=== PATIENT | female | born 1955 | race Caucasian/White ===

== ENCOUNTER → 2018-04-29 10:51 | Outpatient (CLI) | payer OTHER, SELFPAY ==
[2018-04-29 12:43] LABS: BUN 21 mg/dL (7-18); Creatinine, Serum 0.58 mg/dL (0.55-1.02); EST Glomerular Filtration Rate 113 mL/min (>60); Glucose 94 mg/dL (74-106)
[2018-04-29 12:44] LABS: Anion Gap 11 (5-15); BUN/Creat Ratio 36.4 RATIO (10-20); Calcium,Total 9.1 mg/dL (8.5-10.1); Chloride 101 mmol/L (98-107); Est Glom Filt Rate - Afr Amer 137 mL/min (>60); Potassium 3.8 mmol/L (3.5-5.1); Sodium Level 140 mmol/L (136-145)
== END ==
PROVIDERS: Family Provider Family Medicine; PCP Family Medicine; Visit Provider Family Medicine
DX: Z00.00 Encounter for general adult medical examination without abnormal findings (principal)
CPT/HCPCS: 36415; 80048

== ENCOUNTER → 2019-05-19 09:51 | Outpatient (CLI) | payer OTHER, SELFPAY ==
[2019-05-19 12:56] LABS: Anion Gap 5 (5-15); BUN 20 mg/dL (7-18); BUN/Creat Ratio 33.8 RATIO (10-20); Calcium,Total 8.7 mg/dL (8.5-10.1); Chloride 104 mmol/L (98-107); Creatinine, Serum 0.59 mg/dL (0.55-1.02); EST Glomerular Filtration Rate 110 mL/min (>60); Est Glom Filt Rate - Afr Amer 133 mL/min (>60); Glucose 89 mg/dL (74-106); Potassium 3.9 mmol/L (3.5-5.1); Sodium Level 140 mmol/L (136-145)
== END ==
PROVIDERS: Family Provider Family Medicine; PCP Family Medicine; Referring Provider Family Medicine; Visit Provider Family Medicine
DX: I10 Essential (primary) hypertension (principal)
CPT/HCPCS: 36415; 80048

== ENCOUNTER → 2020-02-02 11:59 | Outpatient (CLI) | payer BC, SELFPAY ==
[2020-02-02 16:00] LABS: Anion Gap 6 (5-15); BUN 24 mg/dL (7-18); BUN/Creat Ratio 41.7 RATIO (10-20); Calcium,Total 8.9 mg/dL (8.5-10.1); Chloride 100 mmol/L (98-107); Cholesterol 168 mg/dL (200); Creatinine, Serum 0.58 mg/dL (0.55-1.02); EST Glomerular Filtration Rate 113 mL/min (>60); Est Glom Filt Rate - Afr Amer 137 mL/min (>60); Glucose 89 mg/dL (74-106); High Density Lipoprotein 34 mg/dL; Potassium 3.6 mmol/L (3.5-5.1); Sodium Level 137 mmol/L (136-145); Triglycerides 180 mg/dL; Very Low Density Lipoprotein 36 mg/dL (5-40)
== END ==
PROVIDERS: PCP Family Medicine; Visit Provider Family Medicine
DX: I10 Essential (primary) hypertension (principal)
CPT/HCPCS: 36415; 80048; 80061

== ENCOUNTER 2021-11-07 10:38 | Outpatient (CLI) | payer OTHER, SELFPAY ==
[2021-11-07 12:42] LABS: Anion Gap 5 (5-15); BUN 21 mg/dL (7-18); BUN/Creat Ratio 36.9 RATIO (10-20); Calcium,Total 9.1 mg/dL (8.5-10.1); Chloride 99 mmol/L (98-107); Cholesterol 171 mg/dL (200); Creatinine, Serum 0.57 mg/dL (0.55-1.02); EST Glomerular Filtration Rate 114 mL/min (>60); Est Glom Filt Rate - Afr Amer 138 mL/min (>60); Glucose 91 mg/dL (74-106); High Density Lipoprotein 34 mg/dL; Potassium 3.8 mmol/L (3.5-5.1); Sodium Level 135 mmol/L (136-145); Triglycerides 252 mg/dL; Very Low Density Lipoprotein 50 mg/dL (5-40)
== END 2021-11-07 23:59 | disposition home or self-care (01) ==
LOC: MFPLAB 10:40
PROVIDERS: PCP Family Medicine; Referring Provider Family Medicine; Visit Provider Family Medicine
DX: I10 Essential (primary) hypertension (principal)
CPT/HCPCS: 36415; 80048; 80061

== ENCOUNTER → 2022-01-07 | Outpatient (CLI) | payer BC, SELFPAY | END | disposition home or self-care (01) | LOC: MFPLAB 09:24 | PROVIDERS: PCP Family Medicine; Visit Provider Family Medicine | DX: R19.7 Diarrhea, unspecified (principal) | CPT/HCPCS: 87177; 87209; 87493; 87506 ==

== ENCOUNTER → 2023-05-19 | Outpatient (CLI) | payer MEDICARE, SELFPAY ==
[2023-05-19 12:43] LABS: AST(SGOT) 17 U/L (15-37); Alanine Aminotransfer ALT/SGPT 25 U/L (13-56); Anion Gap 3 (5-15); BUN 22 mg/dL (7-18); BUN/Creat Ratio 43.9 RATIO (10-20); Chloride 104 mmol/L (98-107); Cholesterol 150 mg/dL (200); EST Glomerular Filtration Rate 131 mL/min (>60); Est Glom Filt Rate - Afr Amer 159 mL/min (>60); Glucose 94 mg/dL (74-106); High Density Lipoprotein 28 mg/dL; Potassium 3.9 mmol/L (3.5-5.1); Sodium Level 138 mmol/L (136-145); Triglycerides 318 mg/dL; Very Low Density Lipoprotein 64 mg/dL (5-40)
== END | disposition home or self-care (01) ==
PROVIDERS: PCP Family Medicine; Referring Provider Family Medicine; Visit Provider Family Medicine
DX: E78.2 Mixed hyperlipidemia (principal); I10 Essential (primary) hypertension
CPT/HCPCS: 36415; 80048; 80061; 84450; 84460

== ENCOUNTER → 2024-06-21 | Outpatient (CLI) | payer MEDICARE, SELFPAY ==
--- OUTSIDE RECORDS SUMMARY | 2024-06-21 13:26 | XMS RPT_ITS | CCD ---
Author Organization [facility] Care Team Providers Care Manager Work Name Role Phone Leanna Fisher Primary Care Provider [phone] NEJAZMÍN JOHNSTONNTCRYSTAL ELVIN Attending Unavail able JOLLZAIRA, LEANNA PHILIP Primary Care Unavailable NEYHART MEJIA, ELVIN Referring Unavail able JOLLIFF, LEANNA PHILIP Primary Care Unavailable JOLLIFF, LEANNA PHILIP Primary Care Unavailable NEYHART MEJIA, ELVIN Referring Unavail able NEYHART MEJIA ELVIN Attending Unavail able NEYHART MEJIA, ELVIN Attending Unavail able JOLLIFF, LEANNA PHILIP Primary Care Unavailable NEYHART MEJIA, ELVIN Attending Unavail able JOLLIFF, LEANNA PHILIP Primary Care Unavailable NEYHART MEJIA, ELVIN Attending Unavail able JOLLIFF, LEANNA PHILIP Primary Care Unavailable Allergies Allergy Classification Reported Allergen(s) Allergy Type Date of Onset Reaction(s) Facility (3 sources) Penicillins; Translations: [PENICILLINS] Propensity to adverse reactions 06-04-2006 [facility] Work Phone: (13 sources) Penicillins Propensity to adverse reactions 06-04-2006 [facility] Work Phone: Medications Current Medications Medication Drug Class(es) Dates Sig (Normalized) Sig (Original) aspirin 81 mg chewable tablet (15 sources) Platelet Aggregation Inhibitor, Nonsteroidal Anti-inflammatory Drug Start: 08-23-2008 ASPIRIN 81 MG CHEWABLE TAB one tab daily 0 08/23/2008 Active Comment on above: one tab daily estradiol 0.1 mg/ml vaginal cream (17 sources) Estrogen Start: 10-24-2021 End: 02-09-2024 estradiol (ESTRACE) 0.01 % (0.1 mg/gram) vaginal cream 1/2 gram in vagina 2 nights per wk 42.5 g 1 02/09/2024 Active Comment on above: 1/2 gram in vagina 2 nights per wk fluticasone propionate 0.05 mg/actuat metered dose nasal spray (15 sources) Corticosteroid Start: 03-23-2007 take 1 puff(s) nasal route once in the morning fluticasone (FLONASE) 50 mcg/Actuation NASAL SprA One puff per nostril in a.m. 0 03/23/2007 Active Comment on above: One puff per nostril in a.m. hydroCHLOROthiazide 12.5 mg / lisinopril 20 mg oral tablet (15 sources) Thiazide Diuretic, Angiotensin Converting Enzyme Inhibitor Start: 08-23-2008 LISINOPRIL-HYDR OCHLOROTHIAZIDE 20 MG-12.5 MG TAB one tab daily 0 08/23/2008 Active Comment on above: one tab daily meclizine hydrochloride 25 mg oral tablet (15 sources) Antiemetic Start: 02-15-2021 take 1 tablet by mouth every six hours as needed meclizine (ANTIVERT) 25 mg tab Take 1 tablet by mouth every 6 hours as needed (dizziness). 25 tablet 02/15/2021 Active Comment on above: Take 1 tablet by brien th every 6 hours as needed (dizziness). Problems Problem Classification Problem Date Documented Da te Episodic/Chronic Complication of device; implant or graft (6 sources) Vaginitis; Translations: [Infection and inflammatory reaction due to other prosthetic device, implant and graft in genital tract, initial encounter] Episodic Essential hypertension (15 sources) Essential hypertension; Translations: [Essential (primary) hypertension] Onset: 08-23-2008 08-23-2008 Chronic Genitourinary symptoms and ill-defined conditions (15 sources) Vaginal pessary in situ; Translations: [Presence of urogenital implants] Onset: 03-11-2012 03-11-2012 Chronic Other female genital disorders (1 source) Vaginal bleeding; Translations: [Abnormal uterine and vaginal bleeding, unspecified] Chronic Other female genital disorders (1 source) Lesion of cervix; Translations: [Noninflammatory disorder of cervix uteri, unspecified] Episodic Other screening for suspected conditions (not mental disorders or infectious disease) (20 sources) Patient encounter status; Translations: [Encounter for screening mammogram for malignant neoplasm of breast] Onset: 01-09-2010 Episodic Prolapse of female genital organs (20 sources) Vaginal wall prolapse; Translations: [Cystocele, unspecified] Onset: 12-19-2009 12-19-2009 Chronic Rehabilitation care; fitting of prostheses; and adjustment of devices (8 sources) Patient encounter status; Translations: [Encounter for fitting and adjustment of other specified devices] Chronic Unclassified (15 sources) PMH - PAST MEDICAL HISTORY OF 08-23-2008 Results Test Name Value Interpretation Reference Range Facility DBT Breast - bilateral scree elie 05-11-2024 IMPRESSION: NEGATIVE There is no mammographic evidence of malignancy. A 1 year screening mammogram is recommended. The exam was reviewed by a staff physician. ishan Sol M.D., D.O./cedrick:05/10/20 24 10:02:46 Arboreal Scientist(s): RT Jesus Alberto(R)(M), [facility] letter sent: Normal over 40 Mammogram BI-RADS: Category 1: Negative Multiple national specialty organizations have released breast cancer screening guidelines for women at average risk for developing breast cancer - guidelines that are based on both evidence and opinion, yet differ on when to start and how often to screen for breast cancer. With representation from Breast Imaging, Internal Medicine, Women's Health, Family Medicine, and Medical/Surgical Oncology, the [facility] has carefully reviewed the data and reached the following consensus: 1) All women should engage in shared decision-making with their providers to decide when to start and how often to screen; 2) All women should have the opportunity to start screening mammography at age 40; 3) For women ages 45-55, we recommend annual screening mammograms; 4) For women ages 55 and over, we support both the transition from an annual to a biennial interval if this aligns more with patient's values and preferences, or continuation with annual screening; 5) All women should discuss with their providers when to stop screening mammograms. Industrial Gas Fitter Helper: Cedrick Transcribe Date/Time: May 10 2024 8:01A Dictated by: JENNY WU DO This examination was interpreted and the report reviewed and electronically signed by: SEBASTIAN RIOS MD on May 10 2024 10:02AM [facility] DIVISION OF RADIOLOGY * * *Final Report* * * DATE OF EXAM: May 10 2024 8:50AM [facility] [id number] - [facility] SCREENING W MECCA / PROCEDURE REASON: Encounter for screening mammogram for malignant neoplasm of breast * * * * Physician Interpretation * * * * RESULT: #[id number] - [facility] SCREENING W MECCA BILATERAL DIGITAL SCREENING MAMMOGRAM TOMOSYNTHESIS WITH CAD: 05/10/2024 HISTORY: /Screening Mammogram with MECCA - patient reports NO breast symptoms /priors available for comparison Encounter For Screening Mammogram For Malignant Neoplasm Of Breast. RESULT: TECHNIQUE: The study was acquired using full field digital technology and interpreted from soft copy. Digital Breast Tomosynthesis (DBT) images were obtained and used to assist in the interpretation of this examination. Current study was also evaluated with a Computer Aided Detection (CAD). Comparison is made to exams dated: 05/02/2023 mammogram, 02/04/2022 mammogram - [facility], and 05/17/2019 mammogram - [facility]. There are scattered areas of fibroglandular density. No significant masses, calcifications, or other findings are seen in either breast. There has been no significant interval change. DIVISION OF RADIOLOGY Provider, [facility] - 05/11/2024 * * *Final Report* * * DATE OF EXAM: May 10 2024 8:50AM [facility] 0582 - [facility] SCREENING W MECCA / PROCEDURE REASON: Encounter for screening mammogram for malignant neoplasm of breast * * * * Physician Interpretation * * * * RESULT: #[id number] - [facility] SCREENING W MECCA BILATERAL DIGITAL SCREENING MAMMOGRAM TOMOSYNTHESIS WITH CAD: 05/10/2024 HISTORY: /Screening Mammogram with [facility] - patient reports NO breast symptoms /priors available for comparison Encounter For Screening Mammogram For Malignant Neoplasm Of Breast. RESULT: TECHNIQUE: The study was acquired using full field digital technology and interpreted from soft copy. Digital Breast Tomosynthesis (DBT) images were obtained and used to assist in the interpretation of this examination. Current study was also evaluated with a Computer Aided Detection (CAD). Comparison is made to exams dated: 05/02/2023 mammogram, 02/04/2022 mammogram - [facility], and 05/17/2019 mammogram - [facility]. There are scattered areas of fibroglandular density. No significant masses, calcifications, or other findings are seen in either breast. There has been no significant interval change. IMPRESSION IMPRESSION: NEGATIVE There is no mammographic evidence of malignancy. A 1 year screening mammogram is recommended. The exam was reviewed by a staff physician. ishan Sol M.D., D.O./cedrick:05/10/20 24 10:02:46 Arboreal Scientist(s): RT Jesus Alberto(R)(M), [facility] letter sent: Normal over 40 Mammogram BI-RADS: Category 1: Negative Multiple national specialty organizations have released breast cancer screening guidelines for women at average risk for developing breast cancer - guidelines that are based on both evidence and opinion, yet differ on when to start and how often to screen for breast cancer. With representation from Breast Imaging, Internal Medicine, Women's Health, Family Medicine, and Medical/Surgical Oncology, the [facility] has carefully reviewed the data and reached the following consensus: 1) All women should engage in shared decision-making with their providers to decide when to start and how often to screen; 2) All women should have the opportunity to start screening mammography at age 40; 3) For women ages 45-55, we recommend annual screening mammograms; 4) For women ages 55 and over, we support both the transition from an annual to a biennial interval if this aligns more with patient's values and preferences, or continuation with annual screening; 5) All women should discuss with their providers when to stop screening mammograms. Industrial Gas Fitter Helper: Cedrick Transcribe Date/Time: May 10 2024 8:01A Dictated by: JENNY WU, DO This examination was interpreted and the report reviewed and electronically signed by: SEBASTIAN RIOS MD on May 10 2024 10:02AM EST [facility] DBT Breast - bilateral scree ningOrdered By: Cchenok Provider on 05-11-2024 [facility] MAUREENOon 05-10-2024 [facility] HNO ID: [id number] Author: COORDINATOR, MAMMOGRAPHY, ? Service: ? Author Type: Physician Type: Letter Filed: 05/10/2024 10:02 Note Text: May 11, 2024 PID: [id number] Brenda Enrique [address] [place] [address] Dear Ms. Enrique, We are pleased to inform you that the results of your recent breast imaging exam on 05/10/2024 are normal. Breast tissue can be either dense or not dense. Dense tissue makes it harder to find breast cancer on a mammogram and also raises the risk of developing breast cancer. Your breast tissue is not dense. Talk to your healthcare provider about breast density, risks for breast cancer, and your individual situation. Early detection of cancer is very important. We also understand recommendations regarding breast cancer screening are controversial. Please discuss with your primary care provider which strategy is best for you and whether a mammogram is right for you. Your imaging studies and report will be kept on file at [facility] as part of your permanent medical record and are available for your continuing care. Thank you for allowing us to help in meeting your health care needs. Sincerely, Dr. Rios Interpreting Radiologist [facility] (Normal over 40) Normal [facility] CNOVon 05-10-2024 CNOV Office Visit (OBGYWM) BRENDA ENRIQUE ([id number]) 1955 F Date Time Provider Department 05/10/24 9:00 AM ELVIN RUIZ OBGYWM During your visit today, we recorded the following information about you: Blood pressure Weight Height 122/60 69.9 kg 1.651 m Elvin Ruiz MD 05/10/2024 9:20 AM Signed Studio Technician Video Operator offered: Patient declines. The sensitive examination was discussed with the Patient or Patient's Authorized Certified Medical Records Coder. As applicable, any other physician, advance practice provider, medical student, or other health professional student that will be observing or involved in the sensitive examination for educational or training purposes was discussed with the Patient or Authorized Certified Medical Records Coder. The Patient or Authorized Certified Medical Records Coder has agreed to proceed with the sensitive examination. (Sensitive examination includes inspection and/or palpation of the breasts, pelvis, prostate and anorectal regions) Brenda is a 68 year old who presents for an annual gynecologic exam without complaints. No issues with Pessary. Here for pessary maintenance as well. Pt denies vaginal bleeding, discharge and odors. Postmenopausal: Yes HRT use: No. Last Pap: 10/31/2021 normal HPV: 10/30/2021 negative History of abnormal pap: No Last mammogram: 2023 pending History of abnormal mammogram: No Sexually active: No History of STDS: None Patient concerns for STD exposure: No. Hot flashes: No Night sweats: No Vaginal dryness: No Exercise: active Diet: balanced OB History T2 L2 SAB0 IAB0 Ectopic0 Multiple0 Live Births0 Tank Pumper History LMP: 07/20/2013, Postmenopausal Age at Menarche: Age at First : Age at Menopause: Tank Pumper History Comments: Sexual Activity: Yes; Male Contraception: Surgical, Tubal Ligation PAST MEDICAL HISTORY Diagnosis Date Essential hypertension, benign PMH - PAST MEDICAL HISTORY OF bladder prolapse/ currently wears a pessary PAST SURGICAL HISTORY Procedure Laterality Date APPENDECTOMY COLONOSCOPY FLX DX W/COLLJ SPEC WHEN PFRMD 01/18/10 Normal Colonoscopy LIG/TRNSXJ FLP TUBE ABDL/VAG APPR UNI/BI 1994 FAMILY HISTORY Problem Relation Age of Onset Hypertension Mother Heart Father quafruple bipass Diabetes Father adult onset Hypertension Brother borderline SOCIAL HISTORY Social History Tobacco Use Smoking status: Never Smokeless tobacco: Never Vaping Use Vaping status: Never Used Substance Use Topics Alcohol use: No Drug use: No REVIEW OF SYSTEMS Abdomen: No abdominal pain, nausea, vomiting, diarrhea, or constipation. No bloating, early satiety, indigestion, or increased flatulence. Bladder: No dysuria, gross hematuria, urinary frequency, urinary urgency, or incontinence Breast: No breast lumps, nipple d/c, overlying skin changes, redness or skin retraction Allergies and current medication updated:Yes SENSITIVE EXAM: The sensitive examination was discussed with the Patient or Patient's Authorized Certified Medical Records Coder. As applicable, any other physician, advance practice provider, medical student, or other health professional student that will be observing or involved in the sensitive examination for educational or training purposes was discussed with the Patient or Authorized Certified Medical Records Coder. The Patient or Authorized Certified Medical Records Coder has agreed to proceed with the sensitive examination. (Sensitive examination includes inspection and/or palpation of the breasts, pelvis, prostate and anorectal regions). EXAM: BP 122/60 Ht 5' 5 (1.65m) Wt 154 lb (69.9kg) LMP 07/20/2013 BMI 25.63 kg/(m2). GENERAL: pleasant, female in no apparent distress HEENT: Normocephalic, atraumatic, mucus membranes moist, and no lesions NECK: Supple, full range of motion, no adenopathy, and thyroid normal DERMATOLOGY: Normal, without lesions, non-icteric, and non-hirsute BREAST: soft, non-tender, symmetric, no dominant mass, normal nipple-areolar complex, no lymphadenopathy, and no nipple discharge ABDOMEN: soft, non-tender, and no masses PELVIC: Gelhorn pessary removed wtihout difficulty. Cleaned and coated with trimosan. external genitalia normal, normal Bartholin's glands, urethra, Ravenel's glands, no vulvar lesions, no cervical lesions, good vaginal support, physiologic discharge present, normal appearing perineal body and perianal region. Pessary replaced without difficulty. Pt tolerated well. BIMANUAL: uterus normal size, shape and consistency, no adnexal masses, and non-tender RECTOVAGINAL: deferred. NEURO: alert and oriented x3,exam grossly non-focal EXTREMITIES: normal (Z01.419) Encounter for gynecological examination (general) (routine) without abnormal findings (primary encounter diagnosis) (Z12.31) Encounter for screening mammogram for breast cancer (Z13.820) Screening fo (more content not included)... Normal [facility] DBT Breast - bilateral scree nelgon 05-10-2024 Radiology Study observation (narrative) [facility] SCREENING W TOMOon 05-10 [facility] SCREENING W MECCA * * *Final Report* * * DATE OF EXAM: May 10 2024 8:50AM [facility] [id number] - [facility] SCREENING W MECCA / PROCEDURE REASON: Encounter for screening mammogram for malignant neoplasm of breast * * * * Physician Interpretation * * * * RESULT: #[id number] - [facility] SCREENING W MECCA BILATERAL DIGITAL SCREENING MAMMOGRAM TOMOSYNTHESIS WITH CAD: 05/10/2024 HISTORY: /Screening Mammogram with [facility] - patient reports NO breast symptoms /priors available for comparison Encounter For Screening Mammogram For Malignant Neoplasm Of Breast. RESULT: TECHNIQUE: The study was acquired using full field digital technology and interpreted from soft copy. Digital Breast Tomosynthesis (DBT) images were obtained and used to assist in the interpretation of this examination. Current study was also evaluated with a Computer Aided Detection (CAD). Comparison is made to exams dated: 05/02/2023 mammogram, 02/04/2022 mammogram - [facility], and 05/17/2019 mammogram - [facility]. There are scattered areas of fibroglandular density. No significant masses, calcifications, or other findings are seen in either breast. There has been no significant interval change. IMPRESSION: NEGATIVE There is no mammographic evidence of malignancy. A 1 year screening mammogram is recommended. The exam was reviewed by a staff physician. ishan Sol M.D., D.O./cedrick:05/10/20 10:02:46 Arboreal Scientist(s): RT Jesus Alberto(Ghislaine)(M), [facility] letter sent: Normal over 40 Mammogram BI-RADS: Category 1: Negative Multiple national specialty organizations have released breast cancer screening guidelines for women at average risk for developing breast cancer - guidelines that are based on both evidence and opinion, yet differ on when to start and how often to screen for breast cancer. With representation from Breast Imaging, Internal Medicine, Women's Health, Family Medicine, and Medical/Surgical Oncology, the [facility] has carefully reviewed the data and reached the following consensus: 1) All women should engage in shared decision-making with their providers to decide when to start and how often to screen; 2) All women should have the opportunity to start screening mammography at age 40; 3) For women ages 45-55, we recommend annual screening mammograms; 4) For women ages 55 and over, we support both the transition from an annual to a biennial interval if this aligns more with patient's values and preferences, or continuation with annual screening; 5) All women should discuss with their providers when to stop screening mammograms. Industrial Gas Fitter Helper: Cedrick Transcribe Date/Time: May 10 2024 8:01A Dictated by: JENNY WU, DO This examination was interpreted and the report reviewed and electronically signed by: SEBASTIAN RIOS MD on May 10 2024 10:02AM EST [id number] Normal [facility] CNOVon 02-09-2024 CNOV Office Visit (OBGYWM) BRENDA ENRIQUE ([id number]) 1955 F Date Time Provider Department 02/09/24 8:20 AM ELVIN RUIZ OBGYWM During your visit today, we recorded the following information about you: Blood pressure Weight 120/66 70.3 kg Elvin Ruiz MD 02/09/2024 8:41 AM Signed Studio Technician Video Operator offered: Patient declines. Brendafreda Enrique is a 68 year old who presents today for pessary insertion/cleaning. She wears a size 3.5 Gellhorn pessary. She returns today with no complaints. She has not had problems with the pessary. She has not had vaginal discharge. She has not had vaginal bleeding. CANCELED urogyn appt due to will be moving soon and wants to be able to help - will reschedule when ready. EXAM: pleasant, well developed, well nourished, in no apparent distress Pelvic: Bartholin's, urethra and Ravenel's glands were normal. The Gellhorn pessary was removed. Vaginal exam indicated no erythema, no ulcerations, and no vaginal discharge. The pessary was cleaned a size 3.5 Gellhorn was inserted without difficulty The pessary was inserted, patient tolerated the procedure well and the device is comfortable. -Estrogen Cream placed on Pessary prior to replacement (N81.3) Complete uterovaginal prolapse (primary encounter diagnosis) (Z46.89) Pessary maintenance (Z12.31) Encounter for screening mammogram for malignant neoplasm of breast Vaginal estrogen cream reordered - RTO 3 mo for annual and pessary maintenance - discussed UROGYN again - will reschedule when ready I spent a total of 20 minutes on the date of the service which included preparing to see the patient, [id number] patient care, completing clinical documentation, obtaining and/or reviewing separately obtained history, performing a medically appropriate examination, counseling and educating the patient/family/careg iver, and ordering medications, tests, or procedures. Elvin Hendrix MD Allergies As of Date: 02/09/2024 Noted Allergy Reaction PENICILLINS 06/04/2006 2 - Rash Date Reviewed: 02/09/2024 Reviewed by: Bia Leo MA - Fully Assessed Reason for Visit: Pessary [[id number]] Primary Visit Diagnosis:Complete uterovaginal prolapse [N81.3] Other Visit Diagnoses:Pessary maintenance [Z46.89] Encounter for screening mammogram for malignant neoplasm of breast [Z12.31] Order(s):estradiol (ESTRACE) 0.01 % (0.1 mg/gram) vaginal cream1/2 gram in vagina 2 nights per wkDisp: 42.5 gRfl: 1 [facility] SCREENING W MECCA [[id number]] Order #: [id number] FUTURE Prescriptions as of 02/09/2024 - estradiol (ESTRACE) 0.01 % (0.1 mg/gram) vaginal cream 1/2 gram in vagina 2 nights per wk - meclizine (ANTIVERT) 25 mg tab Take 1 tablet by mouth every 6 hours as needed (dizziness). - LISINOPRIL-HYDROCHLO ROTHIAZIDE 20 MG-12.5 MG TAB one tab daily - ASPIRIN 81 MG CHEWABLE TAB one tab daily - fluticasone (FLONASE) 50 mcg/Actuation NASAL SprA One puff per nostril in a.m. Problem List As Of Date 02/09/2024 Noted Resolved HYPERTENSION NOS [I10] 08/23/2008 PMH - PAST MEDICAL HISTORY OF Vaginal Prolapse [N81.10] 12/19/2009 Special Screening for Malignant Neoplasms, Reserve*01/09/2010 Presence of pessary [Z96.0] 03/11/2012 Prescriptions ordered this encounter Disp Refills Start End ESTRADIOL 0.01% (0.1 MG/GRAM) VAGINA* 42.5* 1 02/09/2024 Si/2 gram in vagina 2 nights per wk Medications Discontinued During This Encounter Prescriptions - estradiol (ESTRACE) 0.01 % (0.1 mg/gram) vaginal cream (Discontinued) 1/2 gram in vagina 2 nights per wk Disposition: Return in about 3 months (around 05/11/2024) for annual / Pessary and needs mammogram in 3 mo. Follow-up and Disposition History for Encounter Date Provider Department Center 02/09/2024 [id number] RUIZ Encounter Status:Closed by ELVIN MEJIA on 02/09/24 Normal [facility] CNOVon 11-05-2023 CNOV Office Visit (YESSICA) BRENDA ENRIQUE ([id number]) 1955 F Date Time Provider Department 11/05/23 11:40 AM ELVIN RUIZ During your visit today, we recorded the following information about you: Blood pressure Weight 110/62 72.6 kg Elvin Ruiz MD 11/05/2023 12:55 PM Signed Studio Technician Video Operator offered: Patient declines. Brenda Enrique is a 67 year old who presents today for pessary insertion/cleaning. She wears a size 3.5 Gellhorn pessary. She returns today with no complaints. Uncomfortable without pessary in place. She has not had vaginal discharge. EXAM: pleasant, well developed, well nourished, in no apparent distress Pelvic: Bartholin's, urethra and Ravenel's glands were normal. The Gellhorn pessary was removed. Vaginal exam indicated no erythema, no ulcerations, and no vaginal discharge. The pessary was cleaned a size 3.5 Gellhorn was coated with estrace cream and inserted without difficulty The pessary was inserted, patient tolerated the procedure well and the device is comfortable. (N81.3) Complete uterovaginal prolapse (primary encounter diagnosis) (T83.69XD, N76.0) Vaginal inflammation from pessary, subsequent encounter (N81.11) Midline cystocele (Z46.89) Pessary maintenance Pt to schedule with urogyn for surgical mgmt of prolapse. Continue use of vaginal estrace. RTO 3 mo. I spent a total of 20 minutes on the date of the service which included preparing to see the patient, [id number] patient care, completing clinical documentation, obtaining and/or reviewing separately obtained history, performing a medically appropriate examination, and counseling and educating the patient/family/careg iver. Elvin Hendrix MD Allergies As of Date: 11/05/2023 Noted Allergy Reaction PENICILLINS 06/04/2006 2 - Rash Date Reviewed: 11/05/2023 Reviewed by: Bia Leo MA - Fully Assessed Reason for Visit: Pessary [345] Primary Visit Diagnosis:Complete uterovaginal prolapse [N81.3] Other Visit Diagnoses:Vaginal inflammation from pessary, subsequent encounter [T83.69XD, N76.0] Midline cystocele [N81.11] Pessary maintenance [Z46.89] Prescriptions as of 11/05/2023 - estradiol (ESTRACE) 0.01 % (0.1 mg/gram) vaginal cream 1/2 gram in vagina 2 nights per wk - meclizine (ANTIVERT) 25 mg tab Take 1 tablet by mouth every 6 hours as needed (dizziness). - LISINOPRIL-HYDROCHLO ROTHIAZIDE 20 MG-12.5 MG TAB one tab daily - ASPIRIN 81 MG CHEWABLE TAB one tab daily - fluticasone (FLONASE) 50 mcg/Actuation NASAL SprA One puff per nostril in a.m. Problem List As Of Date 11/05/2023 Noted Resolved HYPERTENSION NOS [I10] 08/23/2008 PMH - PAST MEDICAL HISTORY OF Vaginal Prolapse [N81.10] 12/19/2009 Special Screening for Malignant Neoplasms, Reserve*01/09/2010 Presence of pessary [Z96.0] 03/11/2012 Disposition: Return in about 3 months (around 02/05/2024) for Pessary check . Follow-up and Disposition History for Encounter Date Provider Department Center 11/05/2023 [id number] MCINTOSH,*OBANA Liam Murphy Encounter Status:Closed by ELVIN MEJIA on 11/05/23 [facility] CNOVon 10-14-2023 CNOV Office Visit (OBGYWM) BRENDA ENRIQUE ([id number]) 1955 F Date Time Provider Department 10/14/23 9:00 AM ELVIN RUIZ OBGYWManolo During your visit today, we recorded the following information about you: Blood pressure Weight 140/80 73 kg Elvin Ruiz MD 10/14/2023 1:04 PM Signed Brenda Enrique is a 67 year old who presents today for pessary insertion/cleaning. She wears a size 3.5 Gellhorn pessary. She returns today with no complaints. She has not had problems with the pessary. She has not had vaginal discharge. She has had occasional spotting. Pt did not see urogynecologist- knows she needs to and is still considering surgery. EXAM: pleasant, well developed, well nourished, in no apparent distress Pelvic: Bartholin's, urethra and Ravenel's glands were normal. The Gellhorn pessary was removed. Vaginal exam indicated no erythema, no vaginal discharge, and area on ectocervix on right that is friable and erythematous- silver nitrate applied. The pessary was cleaned - pessary is stained. (T83.69XD, N76.0) Vaginal inflammation from pessary, subsequent encounter (primary encounter diagnosis) (N81.4) Uterovaginal prolapse (N81.11) Midline cystocele Recommend vaginal estrogen for 2 weeks then replacement of new gelhorn pessary. Discussed with patient I highly recommend evaluation by UROGYN due to prolapse and cervical irritation from pessary. RTO 2 week for pessary replacement- new 3.5 gelhorn held for patient. I spent a total of 20 minutes on the date of the service which included preparing to see the patient, [id number] patient care, completing clinical documentation, obtaining and/or reviewing separately obtained history, performing a medically appropriate examination, and counseling and educating the patient/family/careg iver. Elvin Hendrix MD Allergies As of Date: 10/14/2023 Noted Allergy Reaction PENICILLINS 06/04/2006 2 - Rash Date Reviewed: 10/14/2023 Reviewed by: Marylin Garcia RN - Fully Assessed Reason for Visit: Urinary Problem [252] Primary Visit Diagnosis:Vaginal inflammation from pessary, subsequent encounter [T83.69XD, N76.0] Other Visit Diagnoses:Uterovagin al prolapse [N81.4] Midline cystocele [N81.11] Prescriptions as of 10/14/2023 - estradiol (ESTRACE) 0.01 % (0.1 mg/gram) vaginal cream 1/2 gram in vagina 2 nights per wk - meclizine (ANTIVERT) 25 mg tab Take 1 tablet by mouth every 6 hours as needed (dizziness). - LISINOPRIL-HYDROCHLO ROTHIAZIDE 20 MG-12.5 MG TAB one tab daily - ASPIRIN 81 MG CHEWABLE TAB one tab daily - fluticasone (FLONASE) 50 mcg/Actuation NASAL SprA One puff per nostril in a.m. Problem List As Of Date 10/14/2023 Noted Resolved HYPERTENSION NOS [I10] 08/23/2008 PMH - PAST MEDICAL HISTORY OF Vaginal Prolapse [N81.10] 12/19/2009 Special Screening for Malignant Neoplasms, Reserve*01/09/2010 Presence of pessary [Z96.0] 03/11/2012 Disposition: Return in about 2 weeks (around 10/28/2023) for pessary maintenance with DM. Follow-up and Disposition History for Encounter Date Provider Department Center 10/14/2023 [id number] MCINTOSH,*OBANA Murphy Encounter Status:Closed by ELVIN MEJIA on 10/14/23 [facility] CNOVon 07-09-2023 CNOV Office Visit (OBGYWM) BRENDA ENRIQUE ([id number]) 1955 F Date Time Provider Department 07/09/23 9:00 AM ELVIN RUIZ OBGYWM During your visit today, we recorded the following information about you: Blood pressure Weight 138/84 73.5 kg Elvin Ruiz MD 07/09/2023 10:36 AM Signed Studio Technician Video Operator offered: Patient declines. Brenda Evans Shayan is a 67 year old who presents today for pessary insertion/cleaning. She wears a size 3 Gellhorn pessary. She returns today with complaints of Feeling more pinching or like bladder is dropping more since changing size to smaller pessary. Had some spotting after being up on ladder working.no difficulty urinating or with BMs. EXAM: pleasant, well developed, well nourished, in no apparent distress Pelvic: Bartholin's, urethra and Ravenel's glands were normal. Bladder was prolapsed completely in front of pessary. The Gellhorn pessary was removed. Vaginal exam indicated oozing on right side of cervix silver nitrate applied. Old Pessary 3.5 coated with trimosan and replaced without difficulty. The pessary was inserted, patient tolerated the procedure well and the device is comfortable. A/p: (N81.11) Midline cystocele (primary encounter diagnosis) (N81.4) Uterovaginal prolapse (T83.69XD, N76.0) Vaginal inflammation from pessary, subsequent encounter (Z46.89) Pessary maintenance Sent to urogyn for surgical consultation I spent a total of 20 minutes on the date of the service which included preparing to see the patient, [id number] patient care, completing clinical documentation, obtaining and/or reviewing separately obtained history, performing a medically appropriate examination, counseling and educating the patient/family/careg iver, and ordering medications, tests, or procedures. RTO 3mo or prn. Elvin Hendrix MD Allergies As of Date: 07/09/2023 Noted Allergy Reaction PENICILLINS 06/04/2006 2 - Rash Date Reviewed: 07/09/2023 Reviewed by: Bia Leo Ma - Fully Assessed Reason for Visit: Pessary [345] Primary Visit Diagnosis:Midline cystocele [N81.11] Other Visit Diagnoses:Uterovagin al prolapse [N81.4] Vaginal inflammation from pessary, subsequent encounter [T83.69XD, N76.0] Pessary maintenance [Z46.89] Order(s):CONSULT TO URO GYNECOLOGY [[id number]] Order #: [id number]: 1 FUTURE Prescriptions as of 07/09/2023 - estradiol (ESTRACE) 0.01 % (0.1 mg/gram) vaginal cream 1/2 gram in vagina 2 nights per wk - meclizine (ANTIVERT) 25 mg tab Take 1 tablet by mouth every 6 hours as needed (dizziness). - LISINOPRIL-HYDROCHLO ROTHIAZIDE 20 MG-12.5 MG TAB one tab daily - ASPIRIN 81 MG CHEWABLE TAB one tab daily - fluticasone (FLONASE) 50 mcg/Actuation NASAL SprA One puff per nostril in a.m. Problem List As Of Date 07/09/2023 Noted Resolved HYPERTENSION NOS [I10] 08/23/2008 PMH - PAST MEDICAL HISTORY OF Vaginal Prolapse [N81.10] 12/19/2009 Special Screening for Malignant Neoplasms, Reserve*01/09/2010 Presence of pessary [Z96.0] 03/11/2012 Disposition: Return in about 3 months (around 10/09/2023) for pessary check . Follow-up and Disposition History for Encounter Date Provider Department Center 07/09/2023 [id number] MCINTOSH,*YESSICA Murphy Encounter Status:Closed by ELVIN MEJIA on 07/09/23 [facility] SCREENINGon 02-04-2022 [facility] Vital Signs Date Time Vital Sign Value Performing Clinician Luanne polk 05-10-2024 08:40-0400 Body height 165.1 cm Elvin Mejia MD Work Phone: [facility] 05-10-2024 08:40-0400 Body mass index (BMI) [Ratio] 25.63 kg/m2 Elvin Mejia MD Work Phone: [facility] 05-10-2024 08:40-0400 Body weight 69.85 kg Elvin Mejia MD Work Phone: [facility] 05-10-2024 08:40-0400 Diastolic blood pressure 60 mm[Hg] Elvin Mejia MD Work Phone: [facility] 05-10-2024 08:40-0400 Systolic blood pressure 122 mm[Hg] Elvin Mejia MD Work Phone: [facility] 02-09-2024 08:21-0400 Body mass index (BMI) [Ratio] 26.61 kg/m2 Elvin Mejia MD Work Phone: [facility] 02-09-2024 08:21-0400 Body weight 70.31 kg Elvin Mejia MD Work Phone: [facility] 02-09-2024 08:21-0400 Diastolic blood pressure 66 mm[Hg] Elvin Mejia MD Work Phone: [facility] 02-09-2024 08:21-0400 Systolic blood pressure 120 mm[Hg] Elvin Mejia MD Work Phone: [facility] 11-05-2023 11:42-0400 Body weight 72.58 kg Elvin Mejia MD Work Phone: [facility] 11-05-2023 11:42-0400 Diastolic blood pressure 62 mm[Hg] Elvin Mejia MD Work Phone: [facility] 11-05-2023 11:42-0400 Systolic blood pressure 110 mm[Hg] Elvin Mejia MD Work Phone: [facility] 10-14-2023 09:10-0500 Body weight 73.03 kg Elvin Mejia MD Work Phone: [facility] 10-14-2023 09:10-0500 Diastolic blood pressure 80 mm[Hg] Elvin Mejia MD Work Phone: [facility] 10-14-2023 09:10-0500 Systolic blood pressure 140 mm[Hg] Elvin Mejia MD Work Phone: [facility] 07-09-2023 08:56-0500 Body weight 73.48 kg Elvin Mejia MD Work Phone: [facility] 07-09-2023 08:56-0500 Diastolic blood pressure 84 mm[Hg] Elvin Mejia MD Work Phone: [facility] 07-09-2023 08:56-0500 Systolic blood pressure 138 mm[Hg] Elvin Mejia MD Work Phone: [facility] 04-07-2023 08:08-0400 Body weight 71.67 kg Elvin Mejia MD Work Phone: [facility] 04-07-2023 08:08-0400 Diastolic blood pressure 70 mm[Hg] Elvin Mejia MD Work Phone: [facility] 04-07-2023 08:08-0400 Systolic blood pressure 120 mm[Hg] Elvin Mejia MD Work Phone: [facility] 03-31-2023 10:53-0400 Body weight 71.67 kg Elvin Mejia MD Work Phone: [facility] 03-31-2023 10:53-0400 Diastolic blood pressure 72 mm[Hg] Elvin Mejia MD Work Phone: [facility] 03-31-2023 10:53-0400 Systolic blood pressure 124 mm[Hg] Elvin Mejia MD Work Phone: [facility] 12-26-2022 10:53-0400 Body height 162.6 cm Elvin Mejia MD Work Phone: [facility] 12-26-2022 10:53-0400 Body weight 71.67 kg Elvin Mejia MD Work Phone: [facility] 12-26-2022 10:53-0400 Diastolic blood pressure 76 mm[Hg] Elvin Mejia MD Work Phone: [facility] 12-26-2022 10:53-0400 Systolic blood pressure 120 mm[Hg] Elvin Mejia MD Work Phone: [facility] 09-20-2022 10:43-0500 Body weight 70.76 kg Elvin Mejia MD Work Phone: [facility] 09-20-2022 10:43-0500 Diastolic blood pressure 76 mm[Hg] Elvin Mejia MD Work Phone: [facility] 09-20-2022 10:43-0500 Systolic blood pressure 120 mm[Hg] Elvin Mejia MD Work Phone: [facility] 06-18-2022 11:31-0400 Body weight 70.31 kg Elvin Mejia MD Work Phone: [facility] 06-18-2022 11:31-0400 Diastolic blood pressure 72 mm[Hg] Elvin Mejia MD Work Phone: [facility] 06-18-2022 11:31-0400 Systolic blood pressure 122 mm[Hg] Elvin Mejia MD Work Phone: [facility] 02-28-2022 09:00-0400 Body weight 68.95 kg Elvin Mejia MD Work Phone: [facility] 02-28-2022 09:00-0400 Diastolic blood pressure 78 mm[Hg] Elvin Mejia MD Work Phone: [facility] 02-28-2022 09:00-0400 Systolic blood pressure 124 mm[Hg] Elvin Mejia MD Work Phone: [facility] Encounters Encounter Date Encounter Type Care Provider Facility Start: 05-10-2024 End: 05-12-2024 Documentation procedure Mammography Coordinator [facility] Department Start: 05-10-2024 End: 05-12-2024 Letter encounter Mammography Coordinator [facility] Department Start: 05-10-2024 End: 05-10-2024 Patient encounter procedure Elvin Mejia MD Work Phone: OB/Gynecology Comment on above: Encounter for gyneco logical examination (general) (routine) without abnormal findings (Primary Dx); Encounter for screening mammogram for breast cancer; Screening for osteoporosis; Screen for colon cancer; Complete uterovaginal prolapse; Pessary maintenance Start: 05-10-2024 End: 05-10-2024 Patient encounter status Elvin Mejia MD Work Phone: [facility] Start: 05-10-2024 End: 05-10-2024 ambulatory LEANNA FISHER Facility:[facility] Start: 05-10-2024 End: 05-10-2024 Subsequent hospital visit by physician Screen Mammo [facility] Mammogram Comment on above: Encounter for screen ing mammogram for malignant neoplasm of breast [Z12.31] Start: 02-09-2024 End: 02-09-2024 ambulatory ELVIN MEJIA Facility:[facility] Start: 02-09-2024 End: 02-09-2024 Patient encounter procedure Elvin Mejia MD Work Phone: OB/Gynecology Comment on above: Complete uterovagina l prolapse (Primary Dx); Pessary maintenance; Encounter for screening mammogram for malignant neoplasm of breast Start: 11-05-2023 End: 11-05-2023 ambulatory ELVIN MEJIA Facility:[facility] Start: 11-05-2023 End: 11-05-2023 Patient encounter procedure Elvin Mejia MD Work Phone: OB/Gynecology Comment on above: Complete uterovagina l prolapse (Primary Dx); Vaginal inflammation from pessary, subsequent encounter; Midline cystocele; Pessary maintenance Start: 10-14-2023 End: 10-14-2023 ambulatory ELVIN MEJIA Facility:[facility] Start: 10-14-2023 End: 10-14-2023 Patient encounter procedure Elvin Mejia MD Work Phone: OB/Gynecology Comment on above: Vaginal inflammation from pessary, subsequent encounter (Primary Dx); Uterovaginal prolapse; Midline cystocele Start: 07-09-2023 End: 07-09-2023 ambulatory ELVIN MEJIA Facility:[facility] Start: 07-09-2023 End: 07-09-2023 Patient encounter procedure Elvin Mejia MD Work Phone: OB/Gynecology Comment on above: Midline cystocele (P rimary Dx); Uterovaginal prolapse; Vaginal inflammation from pessary, subsequent encounter; Pessary maintenance Start: 04-07-2023 End: 04-07-2023 Patient encounter procedure Elvin Mejia MD Work Phone: OB/Gynecology Comment on above: Female genital prola pse, unspecified type (Primary Dx); Vaginal inflammation from pessary, subsequent encounter; Pessary maintenance Start: 03-31-2023 End: 03-31-2023 Patient encounter procedure Elvin Mejia MD Work Phone: OB/Gynecology Comment on above: Uterovaginal prolaps e (Primary Dx); Cystocele, midline; Vaginal enterocele; Vaginal inflammation from pessary, subsequent encounter Start: 12-26-2022 End: 12-26-2022 Patient encounter procedure Elvin Mejia MD Work Phone: OB/Gynecology Comment on above: Encounter for gyneco logical examination (general) (routine) without abnormal findings (Primary Dx); Encounter for screening mammogram for breast cancer; Special screening for malignant neoplasms, colon; Encounter for screening for osteoporosis Start: 12-26-2022 End: 12-26-2022 Patient encounter status Elvin Mejia MD Work Phone: OB/Gynecology Start: 09-20-2022 End: 09-20-2022 Patient encounter procedure Elvin Mejia MD Work Phone: OB/Gynecology Comment on above: Female genital prola pse, unspecified type (Primary Dx); Pessary maintenance Start: 06-18-2022 End: 06-18-2022 Patient encounter procedure Elvin Mejia MD Work Phone: OB/Gynecology Comment on above: Female genital prola pse, unspecified type (Primary Dx); Vaginal inflammation from pessary, initial encounter (HCC); Vagina bleeding; Cervical lesion; Pessary maintenance Start: 02-28-2022 End: 02-28-2022 Patient encounter procedure Elvin Mejia MD Work Phone: OB/Gynecology Comment on above: Pessary maintenance (Primary Dx); Female genital prolapse, unspecified type; Cystocele, midline Start: 02-04-2022 Documentation procedure Mammog dung Coordinator [facility] Start: 02-04-2022 Letter encounter Mammography Coordinator [facility] Department Start: 02-04-2022 End: 02-04-2022 Subsequent hospital visit by physician Screen Mammo [facility] Mammogram Procedures Date Procedure Procedure Detail Performing Clinician Start: 05-10-2024 Screening digital br east tomosynthesis bi Elvin Mejia MD Work Phone: Start: 02-04-2022 End: 02-04-2022 Screening mammography bi [facility] Elvin Mejia MD Work Phone: Start: 01-18-2010 Colonoscopy Screen Wst r Start: 06-09-2009 Lipid 1996 panel - S rashard or Plasma Elvin Mejia MD Work Phone: Plan of Treatment Date Care Activity Detail Author Start: 10-24-2026 HPV TESTING HPV TESTING [facility] Start: 10-24-2026 PAP TESTING PAP TESTING [facility] Start: 05-16-2025 End: 05-16-2025 Patient encounter procedure 05/16/2025 9:30 AM EDT Appointment Mammogram [address] [place] [address] Encounter for screening mammogram for breast cancer [Z12.31] Mammogram Comment on above: Encounter for screen ing mammogram for breast cancer [Z12.31] Start: 05-10-2025 BP Controlled (<130/80) BP Controlle d (<130/80) [facility] Start: 05-10-2025 Screening for malign ant neoplasm of breast Mammogram Screening [facility] Start: 02-08-2025 BP Controlled (<130/80) BP Controlle d (<130/80) [facility] Start: 11-04-2024 BP Controlled (<130/80) BP Controlle d (<130/80) [facility] Start: 08-11-2024 End: 08-11-2024 Patient encounter procedure 08/11/2024 1:40 PM EST Office Visit OB/Gynecology [address] [place] [id number] Elvin Ruiz MD [address] [place] [id number] F/up for pessary check OB/Gynecology Comment on above: F/up for pessary javed ck Start: 06-24-2024 End: 06-24-2024 Patient encounter procedure 06/24/2024 8:20 AM EDT Appointment Radiology [address] [place] [id number] Screening for osteoporosis [Z13.820] Radiology Comment on above: Screening for osteop orosis [Z13.820] Start: 05-10-2024 End: 05-10-2024 Patient encounter procedure Mammogram Comment on above: Encounter for screen ing mammogram for malignant neoplasm of breast [Z12.31] Pessary check Start: 05-02-2024 Mammography Mammogram Screening [facility] Start: 05-02-2024 Screening for malign ant neoplasm of breast Mammogram Screening [facility] Start: 04-25-2024 Covid-19 Vaccine ( season) Covid-19 Vaccine () [facility] Start: 04-25-2024 Influenza vaccination Influenz a Vaccine (Season Ended) [facility] Start: 04-07-2024 BP CONTROLLED (<130/80) BP CONTROLLE D (<130/80) [facility] Start: 03-31-2024 BP CONTROLLED (<130/80) BP CONTROLLE D (<130/80) [facility] Start: 12-27-2023 BP CONTROLLED (<130/80) BP CONTROLLE D (<130/80) [facility] Start: 09-20-2023 BP CONTROLLED (<130/80) BP CONTROLLE D (<130/80) [facility] Start: 08-25-2023 Advance Directive Discussion Advance Directive Discussion [facility] Start: 08-25-2023 Behavioral Health Screening Behavioral Health Screening [facility] Start: 08-25-2023 Depression Assessment Depression Ass essment [facility] Start: 06-18-2023 BP CONTROLLED (<130/80) BP CONTROLLE D (<130/80) [facility] Start: 04-25-2023 Covid-19 Vaccine () Covid-19 Vaccine () [facility] Start: 04-25-2023 Influenza vaccination [facility] Start: 03-24-2023 COVID-19 VACCINE (5 - Moderna series) COVID-19 VACCINE (5 - Moderna series) [facility] Start: 02-28-2023 BP CONTROLLED (<130/80) BP CONTROLLE D (<130/80) [facility] Start: 02-04-2023 Mammography MAMMOGRAM [facility] Start: 2022 ADVANCE DIRECTIVE DISCUSSION ADVANCE DIRECTIVE DISCUSSION [facility] Start: 2022 BONE DENSITY BONE DENSITY [facility] Start: 2022 Bone Density Screening Bone Density Screening [facility] Start: 2022 PNEUMOCOCCAL: 65+ (1 - PCV) PNEUMOCOCCAL: 65+ (1 - PCV) [facility] Start: 2022 Screening for osteoporosis Bone Density Screening [facility] Start: 08-25-2022 DEPRESSION ASSESSMENT DEPRESSION ASS ESSMENT [facility] Start: 04-25-2022 Influenza vaccination [facility] Start: 12-22-2021 COVID-19 VACCINE (4 - Booster for Moderna series) COVID-19 VACCINE (4 - Booster for Moderna series) [facility] Start: 10-18-2021 COVID-19 VACCINE (4 - Booster for Moderna series) COVID-19 VACCINE (4 - Booster for Moderna series) [facility] Start: 08-25-2021 DEPRESSION ASSESSMENT DEPRESSION ASS ESSMENT [facility] Start: 2017 RSV Vaccine (1 - 1-d ose 60+ series) RSV Vaccine (1 - 1-dose 60+ series) [facility] Start: 03-22-2015 SHINGRIX VACCINE (2 of 3) SHINGRIX VACCINE (2 of 3) [facility] Start: 06-09-2014 Lipid 1996 panel - S rashard or Plasma Lipid Screening [facility] Start: 06-09-2014 Lipid panel Lipid Screening [facility] Start: 06-09-2014 LIPID SCREEN LIPID SCREEN [facility] Start: 06-09-2012 DIABETES SCREEN DIABETES SCREEN [facility] Start: 06-09-2012 Diabetes Screening Diabetes Screenin g [facility] Start: 01-18-2011 Colonoscopy COLONOSCOPY [facility] Start: 01-18-2011 COLORECTAL CANCER SCREENING COLORECTAL CANCER SCREENING [facility] Start: 01-18-2011 Screening for malign ant neoplasm of colon [facility] Start: 2002 COLOGUARD (FIT-DNA) COLOGUARD (FIT-D NA) [facility] Start: [address] COLONOGRAPHY [facility] Start: 2002 FECAL OCCULT BLOOD FECAL OCCULT BLOO D [facility] Start: 2002 Screening for malign ant neoplasm of colon [facility] Start: 2002 SIGMOIDOSCOPY SIGMOIDOSCOPY [facility] Start: 1976 Urine microalbumin profile [facility] Start: 11-21-1975 ANNUAL PCP TEAM CHEF ASSISTANT TYRA DISEASE VISIT ANNUAL PCP TEAM CHRONIC DISEASE VISIT [facility] Start: 11-21-1975 Anxiety Screening Anxiety Screening [facility] Start: 11-21-1975 BP CONTROLLED (<130/80) BP CONTROLLE D (<130/80) [facility] Start: 11-21-1975 Depression Screening Depression Scre ening [facility] Start: 11-21-1975 HEPATITIS C SCREENING HEPATITIS C [facility] Start: 11-21-1975 Hepatitis C screening Hepatitis C [facility] Start: 11-21-1975 HIV SCREENING HIV SCREENING [facility] Start: 11-21-1975 HIV screening HIV Screening [facility] Start: 1969 Adult depression screening assessment DEPRESSION SCREENING [facility] End: 06-09-2025 BD DXA TRABECULAR BONE SCORE (TBS) BD DXA TRABECULAR BONE SCORE (TBS) Radiology Routine Screening for osteoporosis 1 Occurrences starting 05/10/2024 until 06/09/2025 [facility] Comment on above: 1 Occurrences starti ng 05/10/2024 until 06/09/2025 End: 03-10-2025 DBT Breast - bilateral screening SAHARA SCREENING W [facility] Radiology Routine Encounter for screening mammogram for malignant neoplasm of breast 1 Occurrences starting 02/09/2024 until 03/10/2025 [facility] Work Phone: Comment on above: 1 Occurrences starti ng 02/09/2024 until 03/10/2025 End: 06-09-2025 DBT Breast - bilateral screening SAHARA SCREENING W [facility] Radiology Routine Encounter for screening mammogram for breast cancer 1 Occurrences starting 05/10/2024 until 06/09/2025 [facility] Work Phone: Comment on above: 1 Occurrences starti ng 05/10/2024 until 06/09/2025 End: 06-09-2025 DXA Skeletal system.axial Views for bone density DXA-AXIAL SKELETON Radiology Routine Screening for osteoporosis 1 Occurrences starting 05/10/2024 until 06/09/2025 [facility] Comment on above: 1 Occurrences starti ng 05/10/2024 until 06/09/2025 End: 01-25-2024 DXA-AXIAL SKELETON DXA-AXIAL SKELETON Radiology Routine Encounter for screening for osteoporosis 1 Occurrences starting 12/26/2022 until 01/25/2024 [facility] Work Phone: Comment on above: 1 Occurrences starti ng 12/26/2022 until 01/25/2024 End: 01-25-2024 SAHARA SCREENING W MECCA SAHARA SCREENING W MECCA Radiology Routine Encounter for screening mammogram for breast cancer 1 Occurrences starting 12/26/2022 until 01/25/2024 [facility] Work Phone: Comment on above: 1 Occurrences starti ng 12/26/2022 until 01/25/2024 End: 12-27-2023 Screening colonoscopy COLONOSCOPY SCREENING Endoscopy Routine Special screening for malignant neoplasms, colon 1 Occurrences starting 12/26/2022 until 12/27/2023 [facility] Work Phone: Comment on above: 1 Occurrences starti ng 12/26/2022 until 12/27/2023 End: 05-10-2025 Screening colonoscopy COLONOSCOPY SCREENING Endoscopy Routine Screen for colon cancer 1 Occurrences starting 05/10/2024 until 05/10/2025 [facility] Comment on above: 1 Occurrences starti ng 05/10/2024 until 05/10/2025 SURGICAL PATHOLOGY SURGICAL PATH OLOGY Lab Routine Vagina bleeding Cervical lesion Ordered: 06/18/2022 [facility] Work Phone: Comment on above: Ordered: 06/18/2022 [facility] Immunizations Immunization Date Immunization Notes Care Provider [facility] 07-09-2020 influenza virus vacc ine, unspecified formulation Elvin Mejia MD Work Phone: [facility] 06-20-2018 influenza, injectabl e, quadrivalent, preservative free Screen [facility] 06-30-2016 influenza, injectabl e, quadrivalent, preservative free Screen [facility] 06-26-2015 influenza, seasonal, injectable, preservative free Screen [facility] 01-25-2015 zoster vaccine, live Screen [facility] 05-19-2012 influenza, seasonal, injectable Screen [facility] Payers Date Payer Category Payer Medicare [id number] 2021 Unknown DERRICK DURÁN PPO [id number] 2021-Present [phone] [address] [place] [address] PPO [id number] 2021 Unknown [id number] Social History Date Type Detail Facility Start: 06-18-2022 Tobacco smoking stat [facility] Never smoked tobacco [facility] Start: 10-24-2021 End: 05-10-2024 Alcohol intake Current non-drinker of alcohol (finding) [facility] Start: 1955 Sex Assigned At Not on file [facility] Start: 01-25-2022 End: 02-04-2022 Exposure to SARS-CoV-2 (event) Not sure [facility] Start: 06-18-2022 Tobacco use and exposure Smoke less tobacco non-user [facility] Start: 12-26-2022 End: 03-31-2023 History of Social function [facility] Start: 12-26-2022 End: 03-31-2023 Tobacco use panel [facility] National Score (1-10 0), lower number is lower risk 47 [facility] Clinical Notes 02-04-2022 to 05-10-2024 Letter - Coordinator, Mammography - 05/10/2024 10:02 AM Brionna - Coordinator, Mammography - 05/10/2024 10:02 AM EDTPatient Elvin Sheikh MD - 05/10/2024 8:38 AM EDT Note Date & Type Note Facility 05-10-2024 Note Formatting of this n ote might be different from the original. May 11, 2024 PID: [id number] Brenda Enrique [address] [place] [address] Dear Ms. Enrique, We are pleased to inform you that the results of your recent breast imaging exam on 05/10/2024 are normal. Breast tissue can be either dense or not dense. Dense tissue makes it harder to find breast cancer on a mammogram and also raises the risk of developing breast cancer. Your breast tissue is not dense. Talk to your healthcare provider about breast density, risks for breast cancer, and your individual situation. Early detection of cancer is very important. We also understand recommendations regarding breast cancer screening are controversial. Please discuss with your primary care provider which strategy is best for you and whether a mammogram is right for you. Your imaging studies and report will be kept on file at [facility] as part of your permanent medical record and are available for your continuing care. Thank you for allowing us to help in meeting your health care needs. Sincerely, Dr. Rios Interpreting Radiologist [facility] (Normal over 40) [facility] 05-10-2024 Miscellaneous Notes May 11, 2024 PID: [id number] Brenda Enrique [address] [place] [address] Dear Ms. Enrique, We are pleased to inform you that the results of your recent breast imaging exam on 05/10/2024 are normal. Breast tissue can be either dense or not dense. Dense tissue makes it harder to find breast cancer on a mammogram and also raises the risk of developing breast cancer. Your breast tissue is not dense. Talk to your healthcare provider about breast density, risks for breast cancer, and your individual situation. Early detection of cancer is very important. We also understand recommendations regarding breast cancer screening are controversial. Please discuss with your primary care provider which strategy is best for you and whether a mammogram is right for you. Your imaging studies and report will be kept on file at [facility] as part of your permanent medical record and are available for your continuing care. Thank you for allowing us to help in meeting your health care needs. Sincerely, Dr. Rios Interpreting Radiologist [facility] (Normal over 40) documented in this encounter [facility] 05-10-2024 Instructions Elvin Ruiz MD - 05/10/2024 8:59 AM EDT Images from the original note were not included. Bowel Preparation Instructions for: Miralax-Gatorade Preparations IF YOU DO NOT FOLLOW THESE DIRECTIONS, YOUR COLONOSCOPY WILL BE CANCELLED. [place] Instructions: Your bowel must be empty so that your doctor can clearly view your colon. Follow all of the instructions in this handout EXACTLY as they are written. Do NOT eat any solid food the ENTIRE day before your colonoscopy. Buy your bowel preparation at least 5 days before your colonoscopy. Four (4) Dulcolax laxative tablets containing 5mg of bisacodyl each (NOT Dulcolax stool softener) One (1) 8.3oz. bottle Miralax (238 grams) or generic equivalent 2 x 32oz. Bottles of Gatorade (NOT RED) Diabetic Patients: Use G2 (Gatorade 2) TRANSPORTATION on the Day of Your Exam A responsible adult MUST be present with you at Check In prior to your colonoscopy and REMAIN in the endoscopy area until you are discharged. You are NOT ALLOWED to drive, take a taxi or bus, or leave the Endoscopy Center ALONE. If you do not have a responsible pizza driver (family member or friend) with you to take you home, your exam cannot be done with sedation and will be cancelled. Please bring a list of all of your current medications, including any [id number] medications with you. Medications If you take insulin, diabetic medications or blood thinners such as Coumadin (warfarin), Plavix (clopidogrel), Ticlid (ticlopidine hydrochloride), Agrylin (anagrelide), Xarelto (Rivaroxaban), Pradaxa (Dabigatran), Eliquis (Apixaban), and Effient (Prasugrel). You MUST call the doctors who orders those medicines for instructions on altering the dosage before your colonoscopy. All other medications should be taken the day of the exam with a sip of water including ASPIRIN. Five (5) Days Before Your Colonoscopy Do NOT take medicines that stop diarrhea - such as Imodium, Kaopectate, or Pepto Bismol. Do NOT take fiber supplements - such as Metamucil, Citrucel, or Perdiem. Do NOT take products that contain iron - such as multi-vitamins (the label lists what is in the products). Three (3) Days Before Your Colonoscopy Do NOT eat high-fiber foods - such as popcorn, beans, seeds (flax, sunflower, quinoa), multigrain bread, nuts, salad/vegetables, or fresh and dried fruit. 1 Bowel Preparation Instructions for: Miralax-Gatorade Preparations One (1) Day Before Your Colonoscopy Only drink clear liquids the ENTIRE DAY before your colonoscopy. Do NOT eat any solid foods. Drink at least 8 ounces of clear liquids every hour after waking up. The clear liquids you can drink include: Clear Liquid (NO RED LIQUIDS) DO NOT DRINK Gatorade, Pedialyte or Powerade Clear broth or bouillon Coffee or tea (no milk or non-dairy creamer) Carbonated and non-carbonated soft drinks Carlos-Aid or other fruit flavored drinks Strained fruit juices (no pulp) Jell-O, popsicles, hard candy Water Alcohol Milk or non-dairy creamers Noodles or vegetables in soup Juice with pulp Liquid you cannot see through Do not use tobacco/vaping products Mix 1/2 of Miralax bottle (119 grams) in each 32 ounces of Gatorade bottle until dissolved. Keep cool in the refrigerator. DO NOT ADD ICE. The bowel preparation solution will be consumed in two parts. Part 1 5:00 PM - Evening before your colonoscopy Take 4 Dulcolax tablets. 6 PM - Evening before your colonoscopy Drink 32 oz. of the mixed solution. Drink an 8 oz. glass of bowel preparation every 15 minutes for a total of 4 glasses. Fifteen (15) minutes later, drink an 8 oz. glass of of clear liquids every 15 minutes for a total of 2 glasses. You may continue to drink clear liquids till midnight. Part 2 On the day of your colonoscopy you may drink clear liquids up to (three) 3 hours prior to procedure. 4 1/2 hours before your colonoscopy Take another 32 oz. bottle of mixed solution. Drink an 8 oz. glass of bowel prep every 15 minutes for a total of 4 glasses. Fifteen (15) minutes later, drink an 8 oz. glass of clear liquids every 15 minutes for a total of 2 glasses. You may continue to drink clear liquids up to (three) 3 hours before your exam. 2 07/2019 documented in this encounter [facility] 05-10-2024 Note HNO ID: [id number] Author: ELVIN RUIZ MD Service: ? Author Type: Physician Type: Progress Notes Filed: 05/10/2024 09:20 Note Text: Studio Technician Video Operator offered: Patient declines. The sensitive examination was discussed with the Patient or Patient's Authorized Certified Medical Records Coder. As applicable, any other physician, advance practice provider, medical student, or other health professional student that will be observing or involved in the sensitive examination for educational or training purposes was discussed with the Patient or Authorized Certified Medical Records Coder. The Patient or Authorized Certified Medical Records Coder has agreed to proceed with the sensitive examination. (Sensitive examination includes inspection and/or palpation of the breasts, pelvis, prostate and anorectal regions) Brenda is a 68 year old who presents for an annual gynecologic exam without complaints. No issues with Pessary. Here for pessary maintenance as well. Pt denies vaginal bleeding, discharge and odors. Postmenopausal: Yes HRT use: No. Last Pap: 10/31/2021 normal HPV: 10/30/2021 negative History of abnormal pap: No Last mammogram: 2023 pending History of abnormal mammogram: No Sexually active: No History of STDS: None Patient concerns for STD exposure: No. Hot flashes: No Night sweats: No Vaginal dryness: No Exercise: active Diet: balanced OB History T2 L2 SAB0 IAB0 Ectopic0 Multiple0 Live Births0 Tank Pumper History LMP: 07/20/2013, Postmenopausal Age at Menarche: Age at First : Age at Menopause: Tank Pumper History Comments: Sexual Activity: Yes; Male Contraception: Surgical, Tubal Ligation PAST MEDICAL HISTORY Diagnosis Date Essential hypertension, benign PMH - PAST MEDICAL HISTORY OF bladder prolapse/ currently wears a pessary PAST SURGICAL HISTORY Procedure Laterality Date APPENDECTOMY COLONOSCOPY FLX DX W/COLLJ SPEC WHEN PFRMD 01/18/10 Normal Colonoscopy LIG/TRNSXJ FLP TUBE ABDL/VAG APPR UNI/BI 1994 FAMILY HISTORY Problem Relation Age of Onset Hypertension Mother Heart Father quafruple bipass Diabetes Father adult onset Hypertension Brother borderline SOCIAL HISTORY Social History Tobacco Use Smoking status: Never Smokeless tobacco: Never Vaping Use Vaping status: Never Used Substance Use Topics Alcohol use: No Drug use: No REVIEW OF SYSTEMS Abdomen: No abdominal pain, nausea, vomiting, diarrhea, or constipation. No bloating, early satiety, indigestion, or increased flatulence. Bladder: No dysuria, gross hematuria, urinary frequency, urinary urgency, or incontinence Breast: No breast lumps, nipple d/c, overlying skin changes, redness or skin retraction Allergies and current medication updated:Yes SENSITIVE EXAM: The sensitive examination was discussed with the Patient or Patient's Authorized Certified Medical Records Coder. As applicable, any other physician, advance practice provider, medical student, or other health professional student that will be observing or involved in the sensitive examination for educational or training purposes was discussed with the Patient or Authorized Certified Medical Records Coder. The Patient or Authorized Certified Medical Records Coder has agreed to proceed with the sensitive examination. (Sensitive examination includes inspection and/or palpation of the breasts, pelvis, prostate and anorectal regions). EXAM: BP 122/60 Ht 5' 5 (1.65m) Wt 154 lb (69.9kg) LMP 07/20/2013 BMI 25.63 kg/(m2). GENERAL: pleasant, female in no apparent distress HEENT: Normocephalic, atraumatic, mucus membranes moist, and no lesions NECK: Supple, full range of motion, no adenopathy, and thyroid normal DERMATOLOGY: Normal, without lesions, non-icteric, and non-hirsute BREAST: soft, non-tender, symmetric, no dominant mass, normal nipple-areolar complex, no lymphadenopathy, and no nipple discharge ABDOMEN: soft, non-tender, and no masses PELVIC: Gelhorn pessary removed wtihout difficulty. Cleaned and coated with trimosan. external genitalia normal, normal Bartholin's glands, urethra, Ravenel's glands, no vulvar lesions, no cervical lesions, good vaginal support, physiologic discharge present, normal appearing perineal body and perianal region. Pessary replaced without difficulty. Pt tolerated well. BIMANUAL: uterus normal size, shape and consistency, no adnexal masses, and non-tender RECTOVAGINAL: deferred. NEURO: alert and oriented x3,exam grossly non-focal EXTREMITIES: normal (Z01.419) Encounter for gynecological examination (general) (routine) without abnormal findings (primary encounter diagnosis) (Z12.31) Encounter for screening mammogram for breast cancer (Z13.820) Screening for osteoporosis (Z12.11) Screen for colon cancer (N81.3) Complete uterovaginal prolapse (Z46.89) Pessary maintenance ASSESSMENT/PLAN: 1) Health maintenance: Pap/HPV screening no longer needed Mammogram up to date Nutrition, exercise and routine (more content not included)... [facility] 05-10-2024 History of Presen t illness Narrative Studio Technician Video Operator offered: Patient declines. The sensitive examination was discussed with the Patient or Patient's Authorized Certified Medical Records Coder. As applicable, any other physician, advance practice provider, medical student, or other health professional student that will be observing or involved in the sensitive examination for educational or training purposes was discussed with the Patient or Authorized Certified Medical Records Coder. The Patient or Authorized Certified Medical Records Coder has agreed to proceed with the sensitive examination. (Sensitive examination includes inspection and/or palpation of the breasts, pelvis, prostate and anorectal regions) Brenda is a 68 year old who presents for an annual gynecologic exam without complaints. No issues with Pessary. Here for pessary maintenance as well. Pt denies vaginal bleeding, discharge and odors. Postmenopausal: Yes HRT use: No. Last Pap: 10/31/2021 normal HPV: 10/30/2021 negative History of abnormal pap: No Last mammogram: 2023 pending History of abnormal mammogram: No Sexually active: No History of STDS: None Patient concerns for STD exposure: No. Hot flashes: No Night sweats: No Vaginal dryness: No Exercise: active Diet: balanced OB History T2 L2 SAB0 IAB0 Ectopic0 Multiple0 Live Births0 Tank Pumper History LMP: 07/20/2013, Postmenopausal Age at Menarche: Age at First : Age at Menopause: Tank Pumper History Comments: Sexual Activity: Yes; Male Contraception: Surgical, Tubal Ligation PAST MEDICAL HISTORY Diagnosis Date Essential hypertension, benign PMH - PAST MEDICAL HISTORY OF bladder prolapse/ currently wears a pessary PAST SURGICAL HISTORY Procedure Laterality Date APPENDECTOMY COLONOSCOPY FLX DX W/COLLJ SPEC WHEN PFRMD 01/18/10 Normal Colonoscopy LIG/TRNSXJ FLP TUBE ABDL/VAG APPR UNI/BI 1994 FAMILY HISTORY Problem Relation Age of Onset Hypertension Mother Heart Father quafruple bipass Diabetes Father adult onset Hypertension Brother borderline SOCIAL HISTORY Social History Tobacco Use Smoking status: Never Smokeless tobacco: Never Vaping Use Vaping status: Never Used Substance Use Topics Alcohol use: No Drug use: No REVIEW OF SYSTEMS Abdomen: No abdominal pain, nausea, vomiting, diarrhea, or constipation. No bloating, early satiety, indigestion, or increased flatulence. Bladder: No dysuria, gross hematuria, urinary frequency, urinary urgency, or incontinence Breast: No breast lumps, nipple d/c, overlying skin changes, redness or skin retraction Allergies and current medication updated:Yes SENSITIVE EXAM: The sensitive examination was discussed with the Patient or Patient's Authorized Certified Medical Records Coder. As applicable, any other physician, advance practice provider, medical student, or other health professional student that will be observing or involved in the sensitive examination for educational or training purposes was discussed with the Patient or Authorized Certified Medical Records Coder. The Patient or Authorized Certified Medical Records Coder has agreed to proceed with the sensitive examination. (Sensitive examination includes inspection and/or palpation of the breasts, pelvis, prostate and anorectal regions). EXAM: BP 122/60 Ht 5' 5 (1.65m) Wt 154 lb (69.9kg) LMP 07/20/2013 BMI 25.63 kg/(m^2). GENERAL: pleasant, female in no apparent distress HEENT: Normocephalic, atraumatic, mucus membranes moist, and no lesions NECK: Supple, full range of motion, no adenopathy, and thyroid normal DERMATOLOGY: Normal, without lesions, non-icteric, and non-hirsute BREAST: soft, non-tender, symmetric, no dominant mass, normal nipple-areolar complex, no lymphadenopathy, and no nipple discharge ABDOMEN: soft, non-tender, and no masses PELVIC: Gelhorn pessary removed wtihout difficulty. Cleaned and coated with trimosan. external genitalia normal, normal Bartholin's glands, urethra, Ravenel's glands, no vulvar lesions, no cervical lesions, good vaginal support, physiologic discharge present, normal appearing perineal body and perianal region. Pessary replaced without difficulty. Pt tolerated well. BIMANUAL: uterus normal size, shape and consistency, no adnexal masses, and non-tender RECTOVAGINAL: deferred. NEURO: alert and oriented x3,exam grossly non-focal EXTREMITIES: normal (Z01.419) Encounter for gynecological examination (general) (routine) without abnormal findings (primary encounter diagnosis) (Z12.31) Encounter for screening mammogram for breast cancer (Z13.820) Screening for osteoporosis (Z12.11) Screen for colon cancer (N81.3) Complete uterovaginal prolapse (Z46.89) Pessary maintenance ASSESSMENT/PLAN: 1) Health maintenance: Pap/HPV screening no longer needed Mammogram up to date Nutrition, exercise and routine health maintenance exams reviewed. Calcium/Vitamin D supplementation information provided. Colon cancer screening: colonoscopy ordered BMD: ordered 2) Follow up one year or sooner as needed 3) still considering surgery with Urogyn. Elvin Hendrix MD documented in this encounter [facility] 05-10-2024 History of Presen t illness Narrative Radiology Service Progress Note PATIENT NAME: Brenda Enrique DATE OF SERVICE: May 10, 2024 TIME: 8:18 AM PATIENT IDENTITY VERIFICATION COMPLETED USING TWO (2) IDENTIFIERS: Name and Date of confirmed by patient verbally. FALL SCREENING: Has the patient had 2 falls in the last year or 1 fall with injury or currently using an Ambulatory Assistive Device (Walker, Cane, Wheelchair, Crutches, etc.)? No PATIENT GENDER DATA: Female. status: : No status: NO. PATIENT RELEVANT IMPLANT DATA REVIEWED: Not Applicable PATIENT PRESENTS WITH AN IMPLANTABLE OR ATTACHED PRESS FEEDER BROOMCORN: No RADIOLOGY DEPARTMENT: Mammography PERIPHERAL IV DATA: Not applicable SIGNED BY: Cesia Granda May 10, 2024 8:18 AM documented in this encounter [facility] 05-10-2024 Note HNO ID: [id number] Author: TIMOTHY READ Mammo Tech Service: ? Author Type: Bail Bond Agent Type: Progress Notes Filed: 05/10/2024 08:18 Note Text: Radiology Service Progress Note PATIENT NAME: Brenda Enrique DATE OF SERVICE: May 10, 2024 TIME: 8:18 AM PATIENT IDENTITY VERIFICATION COMPLETED USING TWO (2) IDENTIFIERS: Name and Date of confirmed by patient verbally. FALL SCREENING: Has the patient had 2 falls in the last year or 1 fall with injury or currently using an Ambulatory Assistive Device (Walker, Cane, Wheelchair, Crutches, etc.)? No PATIENT GENDER DATA: Female. status: : No status: NO. PATIENT RELEVANT IMPLANT DATA REVIEWED: Not Applicable PATIENT PRESENTS WITH AN IMPLANTABLE OR ATTACHED PRESS FEEDER BROOMCORN: No RADIOLOGY DEPARTMENT: Mammography PERIPHERAL IV DATA: Not applicable SIGNED BY: Timothy Read Terrajoule May 10, 2024 8:18 AM [facility] [place] 02-09-2024 History of Presen t illness Narrative Studio Technician Video Operator offered: Patient declines. Brenda Enrique is a 68 year old who presents today for pessary insertion/cleaning. She wears a size 3.5 Gellhorn pessary. She returns today with no complaints. She has not had problems with the pessary. She has not had vaginal discharge. She has not had vaginal bleeding. CANCELED urogyn appt due to will be moving soon and wants to be able to help - will reschedule when ready. EXAM: pleasant, well developed, well nourished, in no apparent distress Pelvic: Bartholin's, urethra and Ravenel's glands were normal. The Gellhorn pessary was removed. Vaginal exam indicated no erythema, no ulcerations, and no vaginal discharge. The pessary was cleaned a size 3.5 Gellhorn was inserted without difficulty The pessary was inserted, patient tolerated the procedure well and the device is comfortable. -Estrogen Cream placed on Pessary prior to replacement (N81.3) Complete uterovaginal prolapse (primary encounter diagnosis) (Z46.89) Pessary maintenance (Z12.31) Encounter for screening mammogram for malignant neoplasm of breast Vaginal estrogen cream reordered - RTO 3 mo for annual and pessary maintenance - discussed UROGYN again - will reschedule when ready I spent a total of 20 minutes on the date of the service which included preparing to see the patient, [id number] patient care, completing clinical documentation, obtaining and/or reviewing separately obtained history, performing a medically appropriate examination, counseling and educating the patient/family/caregiver, and ordering medications, tests, or procedures. Elvin Hendrix MD documented in this encounter [facility] 02-09-2024 Note HNO ID: [id number] Author: ELVIN RUIZ MD Service: ? Author Type: Physician Type: Progress Notes Filed: 02/09/2024 08:41 Note Text: Studio Technician Video Operator offered: Patient declines. Brenda Enrique is a 68 year old who presents today for pessary insertion/cleaning. She wears a size 3.5 Gellhorn pessary. She returns today with no complaints. She has not had problems with the pessary. She has not had vaginal discharge. She has not had vaginal bleeding. CANCELED urogyn appt due to will be moving soon and wants to be able to help - will reschedule when ready. EXAM: pleasant, well developed, well nourished, in no apparent distress Pelvic: Bartholin's, urethra and Ravenel's glands were normal. The Gellhorn pessary was removed. Vaginal exam indicated no erythema, no ulcerations, and no vaginal discharge. The pessary was cleaned a size 3.5 Gellhorn was inserted without difficulty The pessary was inserted, patient tolerated the procedure well and the device is comfortable. -Estrogen Cream placed on Pessary prior to replacement (N81.3) Complete uterovaginal prolapse (primary encounter diagnosis) (Z46.89) Pessary maintenance (Z12.31) Encounter for screening mammogram for malignant neoplasm of breast Vaginal estrogen cream reordered - RTO 3 mo for annual and pessary maintenance - discussed UROGYN again - will reschedule when ready I spent a total of 20 minutes on the date of the service which included preparing to see the patient, [id number] patient care, completing clinical documentation, obtaining and/or reviewing separately obtained history, performing a medically appropriate examination, counseling and educating the patient/family/caregiver, and ordering medications, tests, or procedures. Elvin Hendrix MD [facility] [place] 11-05-2023 Note HNO ID: [id number] Author: ELVIN RUIZ MD Service: ? Author Type: Physician Type: Progress Notes Filed: 11/05/2023 12:55 Note Text: Studio Technician Video Operator offered: Patient declines. Brenda Enrique is a 67 year old who presents today for pessary insertion/cleaning. She wears a size 3.5 Gellhorn pessary. She returns today with no complaints. Uncomfortable without pessary in place. She has not had vaginal discharge. EXAM: pleasant, well developed, well nourished, in no apparent distress Pelvic: Bartholin's, urethra and Ravenel's glands were normal. The Gellhorn pessary was removed. Vaginal exam indicated no erythema, no ulcerations, and no vaginal discharge. The pessary was cleaned a size 3.5 Gellhorn was coated with estrace cream and inserted without difficulty The pessary was inserted, patient tolerated the procedure well and the device is comfortable. (N81.3) Complete uterovaginal prolapse (primary encounter diagnosis) (T83.69XD, N76.0) Vaginal inflammation from pessary, subsequent encounter (N81.11) Midline cystocele (Z46.89) Pessary maintenance Pt to schedule with urogyn for surgical mgmt of prolapse. Continue use of vaginal estrace. RTO 3 mo. I spent a total of 20 minutes on the date of the service which included preparing to see the patient, [id number] patient care, completing clinical documentation, obtaining and/or reviewing separately obtained history, performing a medically appropriate examination, and counseling and educating the patient/family/caregiver. Elvin Hendrix MD [facility] [place] 11-05-2023 History of Presen t illness Narrative Studio Technician Video Operator offered: Patient declines. Brenda Enrique is a 67 year old who presents today for pessary insertion/cleaning. She wears a size 3.5 Gellhorn pessary. She returns today with no complaints. Uncomfortable without pessary in place. She has not had vaginal discharge. EXAM: pleasant, well developed, well nourished, in no apparent distress Pelvic: Bartholin's, urethra and Ravenel's glands were normal. The Gellhorn pessary was removed. Vaginal exam indicated no erythema, no ulcerations, and no vaginal discharge. The pessary was cleaned a size 3.5 Gellhorn was coated with estrace cream and inserted without difficulty The pessary was inserted, patient tolerated the procedure well and the device is comfortable. (N81.3) Complete uterovaginal prolapse (primary encounter diagnosis) (T83.69XD, N76.0) Vaginal inflammation from pessary, subsequent encounter (N81.11) Midline cystocele (Z46.89) Pessary maintenance Pt to schedule with urogyn for surgical mgmt of prolapse. Continue use of vaginal estrace. RTO 3 mo. I spent a total of 20 minutes on the date of the service which included preparing to see the patient, [id number] patient care, completing clinical documentation, obtaining and/or reviewing separately obtained history, performing a medically appropriate examination, and counseling and educating the patient/family/caregiver. Elvin Hendrix MD documented in this encounter [facility] 10-14-2023 Note HNO ID: [id number] Author: ELVIN RUIZ MD Service: ? Author Type: Physician Type: Progress Notes Filed: 10/14/2023 13:04 Note Text: Brenda Enrique is a 67 year old who presents today for pessary insertion/cleaning. She wears a size 3.5 Gellhorn pessary. She returns today with no complaints. She has not had problems with the pessary. She has not had vaginal discharge. She has had occasional spotting. Pt did not see urogynecologist- knows she needs to and is still considering surgery. EXAM: pleasant, well developed, well nourished, in no apparent distress Pelvic: Bartholin's, urethra and Ravenel's glands were normal. The Gellhorn pessary was removed. Vaginal exam indicated no erythema, no vaginal discharge, and area on ectocervix on right that is friable and erythematous- silver nitrate applied. The pessary was cleaned - pessary is stained. (T83.69XD, N76.0) Vaginal inflammation from pessary, subsequent encounter (primary encounter diagnosis) (N81.4) Uterovaginal prolapse (N81.11) Midline cystocele Recommend vaginal estrogen for 2 weeks then replacement of new gelhorn pessary. Discussed with patient I highly recommend evaluation by UROGYN due to prolapse and cervical irritation from pessary. RTO 2 week for pessary replacement- new 3.5 gelhorn held for patient. I spent a total of 20 minutes on the date of the service which included preparing to see the patient, [id number] patient care, completing clinical documentation, obtaining and/or reviewing separately obtained history, performing a medically appropriate examination, and counseling and educating the patient/family/caregiver. Elvin Hendrix MD [facility] [place] 10-14-2023 History of Presen t illness Narrative Brenda Enrique is a 67 year old who presents today for pessary insertion/cleaning. She wears a size 3.5 Gellhorn pessary. She returns today with no complaints. She has not had problems with the pessary. She has not had vaginal discharge. She has had occasional spotting. Pt did not see urogynecologist- knows she needs to and is still considering surgery. EXAM: pleasant, well developed, well nourished, in no apparent distress Pelvic: Bartholin's, urethra and Ravenel's glands were normal. The Gellhorn pessary was removed. Vaginal exam indicated no erythema, no vaginal discharge, and area on ectocervix on right that is friable and erythematous- silver nitrate applied. The pessary was cleaned - pessary is stained. (T83.69XD, N76.0) Vaginal inflammation from pessary, subsequent encounter (primary encounter diagnosis) (N81.4) Uterovaginal prolapse (N81.11) Midline cystocele Recommend vaginal estrogen for 2 weeks then replacement of new gelhorn pessary. Discussed with patient I highly recommend evaluation by UROGYN due to prolapse and cervical irritation from pessary. RTO 2 week for pessary replacement- new 3.5 gelhorn held for patient. I spent a total of 20 minutes on the date of the service which included preparing to see the patient, [id number] patient care, completing clinical documentation, obtaining and/or reviewing separately obtained history, performing a medically appropriate examination, and counseling and educating the patient/family/caregiver. Elvin Hendrix MD documented in this encounter [facility] 07-09-2023 Note HNO ID: [id number] Author: Elvin Ruiz MD Service: ? Author Type: Physician Type: Progress Notes Filed: 07/09/2023 10:36 AM Note Text: Studio Technician Video Operator offered: Patient declines. Brenda Enrique is a 67 year old who presents today for pessary insertion/cleaning. She wears a size 3 Gellhorn pessary. She returns today with complaints of Feeling more pinching or like bladder is dropping more since changing size to smaller pessary. Had some spotting after being up on ladder working.no difficulty urinating or with BMs. EXAM: pleasant, well developed, well nourished, in no apparent distress Pelvic: Bartholin's, urethra and Ravenel's glands were normal. Bladder was prolapsed completely in front of pessary. The Gellhorn pessary was removed. Vaginal exam indicated oozing on right side of cervix silver nitrate applied. Old Pessary 3.5 coated with trimosan and replaced without difficulty. The pessary was inserted, patient tolerated the procedure well and the device is comfortable. A/p: (N81.11) Midline cystocele (primary encounter diagnosis) (N81.4) Uterovaginal prolapse (T83.69XD, N76.0) Vaginal inflammation from pessary, subsequent encounter (Z46.89) Pessary maintenance Sent to urogyn for surgical consultation I spent a total of 20 minutes on the date of the service which included preparing to see the patient, [id number] patient care, completing clinical documentation, obtaining and/or reviewing separately obtained history, performing a medically appropriate examination, counseling and educating the patient/family/caregiver, and ordering medications, tests, or procedures. RTO 3mo or prn. Elvin Hendrix MD [facility] [place] 07-09-2023 History of Presen t illness Narrative Studio Technician Video Operator offered: Patient declines. Brenda Enrique is a 67 year old who presents today for pessary insertion/cleaning. She wears a size 3 Gellhorn pessary. She returns today with complaints of Feeling more pinching or like bladder is dropping more since changing size to smaller pessary. Had some spotting after being up on ladder working.no difficulty urinating or with BMs. EXAM: pleasant, well developed, well nourished, in no apparent distress Pelvic: Bartholin's, urethra and Ravenel's glands were normal. Bladder was prolapsed completely in front of pessary. The Gellhorn pessary was removed. Vaginal exam indicated oozing on right side of cervix silver nitrate applied. Old Pessary 3.5 coated with trimosan and replaced without difficulty. The pessary was inserted, patient tolerated the procedure well and the device is comfortable. A/p: (N81.11) Midline cystocele (primary encounter diagnosis) (N81.4) Uterovaginal prolapse (T83.69XD, N76.0) Vaginal inflammation from pessary, subsequent encounter (Z46.89) Pessary maintenance Sent to urogyn for surgical consultation I spent a total of 20 minutes on the date of the service which included preparing to see the patient, [id number] patient care, completing clinical documentation, obtaining and/or reviewing separately obtained history, performing a medically appropriate examination, counseling and educating the patient/family/caregiver, and ordering medications, tests, or procedures. RTO 3mo or prn. Elvin Hendrix MD documented in this encounter [facility] 04-07-2023 History of Presen t illness Narrative Studio Technician Video Operator offered: Patient declines. Brenda Enrique is a 67 year old female who presents for reinsertion of pessary after 1 week of it being out due to vaginal. Patient has been using vaginal estrogen cream doing well. Patient denies any further vaginal bleeding or pain or abnormal discharge. EXAM: BP 120/70 Wt 158 lb (71.7 kg) LMP 07/20/2013 BMI 27.12 kg/m Gen: female in NAD Vaginal: Speculum exam: no vaginal ulcerations, no bleeding. No masses. A new 3 inch Gellhorn pessary was placed without difficulty. Patient tolerated well. A/P RTO 3 mo. Schedule with urogynecology for surgical consultation. Elvin Hendrix MD documented in this encounter [facility] 03-31-2023 History of Presen t illness Narrative Studio Technician Video Operator offered: Patient declines. Brenda Enrique is a 67 year old female who presents for Pessary maintenance. Reports does have occasional spotting noticed more with bowel movements. Denies any foul vaginal discharge. Denies any itching burning or pain. Patient still considering surgery but reports that the timing issue for her. OB History T2 L2 SAB0 IAB0 Ectopic0 Multiple0 Live Births0 Tank Pumper History LMP: 07/20/2013, Postmenopausal Age at Menarche: Age at First : Age at Menopause: Tank Pumper History Comments: Sexual Activity: Yes; Male Contraception: Surgical, Tubal Ligation PAST MEDICAL HISTORY Diagnosis Date Essential hypertension, benign PMH - PAST MEDICAL HISTORY OF bladder prolapse/ currently wears a pessary PAST SURGICAL HISTORY Procedure Laterality Date APPENDECTOMY COLONOSCOPY FLX DX W/COLLJ SPEC WHEN PFRMD 01/18/10 Normal Colonoscopy LIG/TRNSXJ FLP TUBE ABDL/VAG APPR UNI/BI 1994 FAMILY HISTORY Problem Relation Age of Onset Hypertension Mother Heart Father quafruple bipass Diabetes Father adult onset Hypertension Brother borderline Social History Tobacco Use Smoking status: Never Smokeless tobacco: Never Vaping Use Vaping Use: Never used Substance Use Topics Alcohol use: No Drug use: No Current Outpatient Medications Medication Sig estradiol (ESTRACE) 0.01 % (0.1 mg/gram) vaginal cream 1/2 gram in vagina 2 nights per wk meclizine (ANTIVERT) 25 mg tab Take 1 tablet by mouth every 6 hours as needed (dizziness). LISINOPRIL-HYDROCHLOROTHIAZIDE 20 MG-12.5 MG TAB one tab daily ASPIRIN 81 MG CHEWABLE TAB one tab daily fluticasone (FLONASE) 50 mcg/Actuation NASAL SprA One puff per nostril in a.m. No current facility-administered medications for this visit. Allergies As of Date: 03/31/2023 Allergen Noted Reaction PENICILLINS 06/04/2006 Rash Fully Assessed 03/31/2023 REVIEW OF SYSTEMS Abdomen: no pain Bladder: no dysuria.. Expanded ROS: GENERAL: Negative for fever Allergies and current medication updated:Yes EXAM: BP 124/72 Wt 158 lb (71.7kg) LMP 07/20/2013 GENERAL: pleasant, female in no apparent distress HEENT: Normocephalic and atraumatic NECK: full range of motion PELVIC: Pessary removed without difficulty. Pessary was cleaned. Did advise the patient that I recommend a new pessary at this time due to discoloration. Upon speculum exam there is a clot noted in the vault and there is active bleeding from the posterior vaginal wall. There is some what appears to be granulation tissue on the right side but it is not actively bleeding. There are no ulcerations. Cystocele grade 3, uterine prolapse, enterocele. Silver nitrate applied to the active bleeding into the granulation tissue after verbal consent was obtained. NEURO: alert and oriented x3,exam grossly non-focal EXTREMITIES: normal ASSESSMENT AND PLAN: Encounter Diagnosis ICD-10-CM 1. Uterovaginal prolapse N81.4 CONSULT TO URO GYNECOLOGY 2. Cystocele, midline N81.11 CONSULT TO URO GYNECOLOGY 3. Vaginal enterocele N81.5 CONSULT TO URO GYNECOLOGY 4. Vaginal inflammation from pessary, subsequent encounter T83.69XD N76.0 5. Discussed with the patient that I would recommend leaving the pessary out continued use of vaginal estrogen nightly 1 g. She can return the office in 1 week for pessary to be placed. We will try a smaller pessary we did use a 3 inch pessary today in the office and that was comfortable for the patient. However the bladder still does come anterior to the pessary but at this point she reports that it gives her comfort throughout the day and she is able to urinate without difficulty. My recommendation is that she see urogynecology for surgical intervention.Pt agreeable to this and will schedule appt. Will place 3 GELHORN at next visit I spent a total of 30 minutes on the date of the service which included preparing to see the patient, [id number] patient care, completing clinical documentation, obtaining and/or reviewing separately obtained history, performing a medically appropriate examination, and counseling and educating the patient/family/caregiver. Elvin Hendrix MD documented in this encounter [facility] 12-26-2022 Instructions Elvin Mejia MD - 12/26/2022 11:08 AM EDT Images from the original note were not included. Miralax/Dulcolax Bowel Prep For this bowel preparation, you will need to purchase the following medications at any pharmacy: Over the counter Miralax (generic name is polyethylene glycol) 8.3 oz or 238 grams Four (4) Dulcolax (generic name is Bisacodyl) tablets 3 days prior to your procedure, you need to be on a low fiber diet (Such as popcorn, beans, seeds, nuts, salad and raw vegetables, corn, fresh and dried fruit and multi-grain bread) YOU MUST BE ON CLEAR LIQUIDS FOR 2 FULL DAYS PRIOR TO YOUR COLONOSCOPY Day one which would be two days before your colonoscopy, you will need to be on clear liquids all day. You may have coffee or tea-black only (no cream), clear broths (beef, chicken or vegetable), apple juice, white grape juice, pop, Gatorade, Powerade, lemonade, Jello, popsicles, Carlos-aid, and water-But nothing red or dark purple in color and no dairy products, tomato or orange juices. Day two which would be the day before your colonoscopy continue clear liquids all day as above. And follow the instructions below: 8:00 AM - Mix the Miralax with 64 oz of Gatorade or another clear liquid of choice and place in refrigerator. Most people say the drink is better cold. 4:00 PM - Take 2 of the Dulcolax tablets with 8 oz of water. 6:00 PM - Start to drink the Miralax mixture. You must finish it by midnight. 8:00 PM - Take the other 2 Dulcolax tablets with 8 oz of water. You may continue to drink clear liquids while you are taking your prep and after you finish it as long as it is before midnight. Drink lots of fluids so you don t become dehydrated. Nothing to drink after midnight the night before the procedure unless you are instructed differently by the physician or nurses. Please remember to take your normal medications the morning of the procedure with a small sip of water especially your blood pressure medications. If you are diabetic, you need to contact your physician about how to take your diabetic medications and/or insulin during the prepping period and the day of your procedure. Any questions please call: Dr. Rowland or Dr. Reis [phone] Myla Teresa [phone] Dr. Vincent [phone] [facility] nurses [phone] Bowel Preparation Instructions for: Golytely, Nulytely, Trilyte or Colyte (polyethylene glycol 3350 and electrolytes) IF YOU DO NOT FOLLOW THESE DIRECTIONS, YOUR COLONOSCOPY WILL BE CANCELLED. [place] Instructions: Your bowel must be empty so that your doctor can clearly view your colon. Follow all of the instructions in this handout EXACTLY as they are written. Do NOT eat any solid food the ENTIRE day before your colonoscopy. Drink only clear liquids. Buy your bowel preparation at least 5 days before your colonoscopy. TRANSPORTATION on the Day of Your Exam A responsible person MUST be present with you at Check In prior to your colonoscopy and REMAIN in the endoscopy area until you are discharged. You are NOT ALLOWED to drive, take a taxi or bus, or leave the Endoscopy Center ALONE. If you do not have a responsible pizza driver (family member or friend) with you to take you home, your exam cannot be done with sedation and will be cancelled. Please bring a list of all of your current medications, including any Over-the Counter medications with you. Medications If you take insulin, diabetic medications or blood thinners such as Coumadin (warfarin), Plavix (clopidogrel), Ticlid (ticlopidine hydrochloride), Agrylin (anagrelide), Xarelto (Rivaroxaban), Pradaxa (Dabigatran), Eliquis (Apixaban), and Effient (Prasugrel). You MUST call the doctors who orders those medicines for instructions on altering the dosage before your colonoscopy. All other medications should be taken the day of the exam with a sip of water including ASPIRIN. Five (5) Days Before Your Colonoscopy Do NOT take medicines that stop diarrhea - such as Imodium, Kaopectate, or Pepto Bismol. Do NOT take fiber supplements - such as Metamucil, Citrucel, or Perdiem. Do NOT take products that contain iron - such as multi-vitamins (the label lists what is in the products). Do NOT take Vitamin E. Buy the prescription bowel preparation solution at your local pharmacy or drugstore pharmacy. 07/2019 Bowel Preparation Instructions for: Golytely, Nulytely, Trilyte or Colyte (polyethylene glycol 3350 and electrolytes) Three (3) Days Before Your Colonoscopy Do NOT eat high-fiber foods - such as popcorn, beans, seeds (flax, sunflower, quinoa), multigrain bread, nuts, salad/vegetables, or fresh and dried fruit. One (1) Day Before Your Colonoscopy Only drink clear liquids the ENTIRE DAY before your colonoscopy. Do NOT eat any solid foods. Drink at least 8 ounces of clear liquids every hour after waking up. The clear liquids you can drink include: Clear Liquid (NO RED LIQUIDS) DO NOT DRINK Gatorade, Pedialyte or Powerade Clear broth or bouillon Coffee or tea (no milk or non-dairy creamer) Carbonated and non-carbonated soft drinks Carlos-Aid or other fruit flavored drinks Strained fruit juices (no pulp) Jell-O, popsicles, hard candy Water Alcohol Milk or non-dairy creamers Noodles or vegetables in soup Juice with pulp Liquid you cannot see through Do not use tobacco/vaping products The bowel preparation solution will be consumed in two parts. Mix the solution the evening before your colonoscopy and refrigerate before drinking. You may add the flavor pack that came with the bowel preparation. Do NOT add ice, sugar or any other flavorings to the solution. Part 1 At 6:00 PM - Evening before your colonoscopy Drink an 8-oz glass of bowel preparation every 10 minutes for a total of 8 glasses. You may continue to drink clear liquids until midnight. Part 2 On the day of your colonoscopy you may drink clear liquids up to (three) 3 hours before your procedure. 4 1/2 hours before your colonoscopy Drink an 8-oz glass of bowel preparation every 10 minutes for a total of 8 glasses. Fifteen (15) minutes later, drink an 8-oz glass of clear liquids every 15 minutes for a total of 2 glasses. You may continue to drink clear liquids up to (three) 3 hours before your exam. 2 07/2019 Miralax/Dulcolax Bowel Prep For this bowel preparation, you will need to purchase the following medications at any pharmacy: Over the counter Miralax (generic name is polyethylene glycol) 8.3 oz or 238 grams Four (4) Dulcolax (generic name is Bisacodyl) tablets 3 days prior to your procedure, you need to be on a low fiber diet (Such as popcorn, beans, seeds, nuts, salad and raw vegetables, corn, fresh and dried fruit and multi-grain bread) YOU MUST BE ON CLEAR LIQUIDS FOR 2 FULL DAYS PRIOR TO YOUR COLONOSCOPY Day one which would be two days before your colonoscopy, you will need to be on clear liquids all day. You may have coffee or tea-black only (no cream), clear broths (beef, chicken or vegetable), apple juice, white grape juice, pop, Gatorade, Powerade, lemonade, Jello, popsicles, Carlos-aid, and water-But nothing red or dark purple in color and no dairy products, tomato or orange juices. Day two which would be the day before your colonoscopy continue clear liquids all day as above. And follow the instructions below: 8:00 AM - Mix the Miralax with 64 oz of Gatorade or another clear liquid of choice and place in refrigerator. Most people say the drink is better cold. 4:00 PM - Take 2 of the Dulcolax tablets with 8 oz of water. 6:00 PM - Start to drink the Miralax mixture. You must finish it by midnight. 8:00 PM - Take the other 2 Dulcolax tablets with 8 oz of water. You may continue to drink clear liquids while you are taking your prep and after you finish it as long as it is before midnight. Drink lots of fluids so you don t become dehydrated. Nothing to drink after midnight the night before the procedure unless you are instructed differently by the physician or nurses. Please remember to take your normal medications the morning of the procedure with a small sip of water especially your blood pressure medications. If you are diabetic, you need to contact your physician about how to take your diabetic medications and/or insulin during the prepping period and the day of your procedure. Any questions please call: Dr. Rowland or Dr. Reis [phone] Myla Teresa [phone] Dr. Vincent [phone] [facility] nurses [phone] documented in this encounter [facility] 12-26-2022 History of Presen t illness Narrative Studio Technician Video Operator offered: Patient declines. Gutierrez is a 67 year old who presents for an annual gynecologic exam without complaints. Pessary in place, doing well. Postmenopausal: Yes HRT use: No. Last Pap: 10/31/2021 normal HPV: 10/30/2021 negative History of abnormal pap: No Last mammogram: 2021 normal History of abnormal mammogram: No Sexually active: No History of STDS: None Patient concerns for STD exposure: No. Hot flashes: No Night sweats: No Exercise: active Diet: balanced OB History T2 L2 SAB0 IAB0 Ectopic0 Multiple0 Live Births0 Tank Pumper History LMP: 07/20/2013, Postmenopausal Age at Menarche: Age at First : Age at Menopause: Tank Pumper History Comments: Sexual Activity: Yes; Male Contraception: Surgical, Tubal Ligation PAST MEDICAL HISTORY Diagnosis Date Essential hypertension, benign PMH - PAST MEDICAL HISTORY OF bladder prolapse/ currently wears a pessary PAST SURGICAL HISTORY Procedure Laterality Date APPENDECTOMY COLONOSCOPY FLX DX W/COLLJ SPEC WHEN PFRMD 01/18/10 Normal Colonoscopy LIG/TRNSXJ FLP TUBE ABDL/VAG APPR UNI/BI 1994 FAMILY HISTORY Problem Relation Age of Onset Hypertension Mother Heart Father quafruple bipass Diabetes Father adult onset Hypertension Brother borderline SOCIAL HISTORY Social History Tobacco Use Smoking status: Never Smokeless tobacco: Never Vaping Use Vaping Use: Never used Substance Use Topics Alcohol use: No Drug use: No REVIEW OF SYSTEMS Abdomen: No abdominal pain, nausea, vomiting, diarrhea, or constipation. No bloating, early satiety, indigestion, or increased flatulence. Bladder: No dysuria, gross hematuria, urinary frequency, urinary urgency, or incontinence Breast: No breast lumps, nipple d/c, overlying skin changes, redness or skin retraction Allergies and current medication updated:Yes EXAM: Ht 5' 4 (1.63m) Wt 158 lb (71.7kg) LMP 07/20/2013 BMI 27.11 kg/(m^2). GENERAL: pleasant, female in no apparent distress HEENT: Normocephalic, atraumatic, mucus membranes moist, and no lesions NECK: Supple, full range of motion, no adenopathy, and thyroid normal DERMATOLOGY: Normal, without lesions, non-icteric, and non-hirsute BREAST: soft, non-tender, symmetric, no dominant mass, normal nipple-areolar complex, no lymphadenopathy, and no nipple discharge ABDOMEN: soft, non-tender, and no masses PELVIC: Pessary removed- cleaned. external genitalia normal, normal Bartholin's glands, urethra, Ravenel's glands, no vulvar lesions, no cervical lesions, physiologic discharge present, normal appearing perineal body and perianal region, cystocele 3rd degree, Cervical prolapse grade 2. Granulation tissue on right vaginal wall - verbal consent obtained- silver nitrate applied. Pessary replaced without difficulty. Pt tolerated well. BIMANUAL: uterus normal size, shape and consistency, no adnexal masses, and non-tender RECTOVAGINAL: deferred. NEURO: alert and oriented x3,exam grossly non-focal EXTREMITIES: normal ASSESSMENT/PLAN: 1) Health maintenance: Pap/HPV screening no longer needed Mammogram ordered Mammogram up to date Nutrition, exercise and routine health maintenance exams reviewed. Colonoscopy: ordered BMD: ordered 2) Follow up one year or sooner as needed 3) pessary maintenance 3 mo 4) estrogen use reviewed 5 ) surgical intervention reviewed- declines at this time. Elvin Hendrix MD documented in this encounter [facility] 09-20-2022 History of Presen t illness Narrative Studio Technician Video Operator offered: Patient declines. Brenda Enrique is a 66 year old female who presents for pessary maintenance. Patient reports no concerns today. Denies any vaginal bleeding odors, itching or burning. Patient reports sometimes her bladder does drop in front of the pessary. Patient declined surgical intervention at this time. OB History T2 L2 SAB0 IAB0 Ectopic0 Multiple0 Live Births0 Tank Pumper History LMP: 07/20/2013, Postmenopausal Age at Menarche: Age at First : Age at Menopause: Tank Pumper History Comments: Sexual Activity: Yes; Male Contraception: Surgical, Tubal Ligation PAST MEDICAL HISTORY Diagnosis Date Essential hypertension, benign PMH - PAST MEDICAL HISTORY OF bladder prolapse/ currently wears a pessary PAST SURGICAL HISTORY Procedure Laterality Date APPENDECTOMY COLONOSCOPY FLX DX W/COLLJ SPEC WHEN PFRMD 01/18/10 Normal Colonoscopy LIG/TRNSXJ FLP TUBE ABDL/VAG APPR UNI/BI 1994 FAMILY HISTORY Problem Relation Age of Onset Hypertension Mother Heart Father quafruple bipass Diabetes Father adult onset Hypertension Brother borderline Social History Tobacco Use Smoking status: Never Smokeless tobacco: Never Vaping Use Vaping Use: Never used Substance Use Topics Alcohol use: No Drug use: No Current Outpatient Medications Medication Sig estradiol (ESTRACE) 0.01 % (0.1 mg/gram) vaginal cream 1/2 gram in vagina 2 nights per wk meclizine (ANTIVERT) 25 mg tab Take 1 tablet by mouth every 6 hours as needed (dizziness). LISINOPRIL-HYDROCHLOROTHIAZIDE 20 MG-12.5 MG TAB one tab daily ASPIRIN 81 MG CHEWABLE TAB one tab daily fluticasone (FLONASE) 50 mcg/Actuation NASAL SprA One puff per nostril in a.m. No current facility-administered medications for this visit. Allergies As of Date: 09/20/2022 Allergen Noted Reaction PENICILLINS 06/04/2006 Rash Fully Assessed 06/18/2022 REVIEW OF SYSTEMS Abdomen: no pain Bladder: no dysuria. Expanded ROS: GENERAL: Negative for fever Allergies and current medication updated:Yes EXAM: BP 120/76 Wt 156 lb (70.8kg) LMP 07/20/2013 GENERAL: pleasant, female in no apparent distress HEENT: Normocephalic and atraumatic NECK: Supple PELVIC: Pessary removed without difficulty. Pessary was cleaned and coated with lubricating jelly. External genitalia normal, normal Bartholin's glands, urethra, Ravenel's glands, no vulvar lesions, no cervical lesions, physiologic discharge present, normal appearing perineal body and perianal region, cystocele 3rd degree, cervical prolapse 2nd degree. Pessary was then replaced without difficulty. No ulcerations were present. BIMANUAL: uterus normal size, shape and consistency, no adnexal masses, and non-tender NEURO: alert and oriented x3,exam grossly non-focal EXTREMITIES: normal ASSESSMENT AND PLAN: Encounter Diagnosis ICD-10-CM 1. Female genital prolapse, unspecified type N81.9 2. Pessary maintenance Z46.89 3. RTO 3 mo I spent a total of 20 minutes on the date of the service which included preparing to see the patient, [id number] patient care, completing clinical documentation, obtaining and/or reviewing separately obtained history, performing a medically appropriate examination, and counseling and educating the patient/family/caregiver Medical Decision Making: Medical Decision Making Level: 1 - N/A Elvin Hendrix MD documented in this encounter [facility] 06-18-2022 History of Presen t illness Narrative Studio Technician Video Operator offered: Patient declines. Brenda Enrique is a 66 year old female who presents for pessary maintenance. Patient reports is doing well with the pessary. She states for the last couple days has noticed a tiny bit of vaginal spotting but she has been more physically active. Patient denies any vaginal odors, itching, burning or dysuria. Patient reports not considering surgery at this time. OB History T2 L2 SAB0 IAB0 Ectopic0 Multiple0 Live Births0 Tank Pumper History LMP: 07/20/2013, Postmenopausal Age at Menarche: Age at First : Age at Menopause: Tank Pumper History Comments: Sexual Activity: Yes; Male Contraception: Surgical, Tubal Ligation PAST MEDICAL HISTORY Diagnosis Date Essential hypertension, benign PMH - PAST MEDICAL HISTORY OF bladder prolapse/ currently wears a pessary PAST SURGICAL HISTORY Procedure Laterality Date APPENDECTOMY COLONOSCOPY FLX DX W/COLLJ SPEC WHEN PFRMD 01/18/10 Normal Colonoscopy LIG/TRNSXJ FLP TUBE ABDL/VAG APPR UNI/BI 1994 FAMILY HISTORY Problem Relation Age of Onset Hypertension Mother Heart Father quafruple bipass Diabetes Father adult onset Hypertension Brother borderline Social History Tobacco Use Smoking status: Never Smokeless tobacco: Never Vaping Use Vaping Use: Never used Substance Use Topics Alcohol use: No Drug use: No Current Outpatient Medications Medication Sig estradiol (ESTRACE) 0.01 % (0.1 mg/gram) vaginal cream 1/2 gram in vagina 2 nights per wk meclizine (ANTIVERT) 25 mg tab Take 1 tablet by mouth every 6 hours as needed (dizziness). LISINOPRIL-HYDROCHLOROTHIAZIDE 20 MG-12.5 MG TAB one tab daily ASPIRIN 81 MG CHEWABLE TAB one tab daily fluticasone (FLONASE) 50 mcg/Actuation NASAL SprA One puff per nostril in a.m. No current facility-administered medications for this visit. Allergies As of Date: 06/18/2022 Allergen Noted Reaction PENICILLINS 06/04/2006 Rash Fully Assessed 02/28/2022 REVIEW OF SYSTEMS Abdomen: no pain Bladder: no dysuria .. Expanded ROS: GENERAL: Negative for fever Allergies and current medication updated:Yes EXAM: BP 122/72 Wt 155 lb (70.3kg) LMP 07/20/2013 GENERAL: pleasant, female in no apparent distress HEENT: Normocephalic and atraumatic NECK: full range of motion DERMATOLOGY: Normal PELVIC: Pessary removed without difficulty. Grade 3 cystocele appreciated. Grade 2 cervical prolapse. There is a friable area of tissue from 9:00 to 12:00 on the cervix. It appears as possible granulation tissue at bright red beefy red. This area is nontender to touch. Verbal consent was obtained and a ring forcep was used to grasp the tissue with very little manipulation of tissue was removed. There was some bleeding at the base this was cauterized using silver nitrate. Excellent hemostasis was then appreciated and the pessary was cleaned coated with lubricating gel and then replaced without difficulty. Discussed with the patient this could be a cervical polyp versus just granulation tissue. NEURO: alert and oriented x3,exam grossly non-focal EXTREMITIES: normal ASSESSMENT AND PLAN: Encounter Diagnosis ICD-10-CM 1. Female genital prolapse, unspecified type N81.9 2. Vaginal inflammation from pessary, initial encounter ([facility]) T83.69XA N76.0 3. Vagina bleeding N93.9 SURGICAL PATHOLOGY 4. Cervical lesion N88.9 SURGICAL PATHOLOGY 5. Pessary maintenance Z46.89 6. Reviewed with patient that this is likely a granulation tissue from the pessary versus exophytic cervical lesion. It was removed after verbal consent was obtained from the patient. We will send pathology for evaluation I will notify her of the results. At this point she can expect a little bit of bleeding. She had a pelvic ultrasound done 2021 endometrial lining was normal. At this time if she does not experience any more bleeding I do not feel that an ultrasound is necessary but if she does encounter more vaginal bleeding we will consider pelvic ultrasound to rule out other sources of bleeding. Patient does not desire surgical management at this time. I spent a total of 20 minutes on the date of the service which included preparing to see the patient, [id number] patient care, completing clinical documentation, obtaining and/or reviewing separately obtained history, performing a medically appropriate examination, and counseling and educating the patient/family/caregiver. Elvin Hendrix MD documented in this encounter [facility] 02-28-2022 History of Presen t illness Narrative Brenda Enrique is a 66 year old female who presents for pessary maintenance. Patient reports is doing well. Denies any vaginal bleeding, foul odors, itching or burning. Patient still considering surgery but not at this time. OB History T2 L2 SAB0 IAB0 Ectopic0 Multiple0 Live Births0 Tank Pumper History LMP: 07/20/2013, Postmenopausal Age at Menarche: Age at First : Age at Menopause: Tank Pumper History Comments: Sexual Activity: Yes; Male Contraception: Surgical, Tubal Ligation PAST MEDICAL HISTORY Diagnosis Date Essential hypertension, benign PMH - PAST MEDICAL HISTORY OF bladder prolapse/ currently wears a pessary PAST SURGICAL HISTORY Procedure Laterality Date APPENDECTOMY COLONOSCOPY FLX DX W/COLLJ SPEC WHEN PFRMD 01/18/10 Normal Colonoscopy LIG/TRNSXJ FLP TUBE ABDL/VAG APPR UNI/BI 1994 FAMILY HISTORY Problem Relation Age of Onset Hypertension Mother Heart Father quafruple bipass Diabetes Father adult onset Hypertension Brother borderline Social History Tobacco Use Smoking status: Never Smoker Smokeless tobacco: Never Used Vaping Use Vaping Use: Never used Substance Use Topics Alcohol use: No Drug use: No Current Outpatient Medications Medication Sig estradiol (ESTRACE) 0.01 % (0.1 mg/gram) vaginal cream 1/2 gram in vagina 2 nights per wk meclizine (ANTIVERT) 25 mg tab Take 1 tablet by mouth every 6 hours as needed (dizziness). LISINOPRIL-HYDROCHLOROTHIAZIDE 20 MG-12.5 MG TAB one tab daily ASPIRIN 81 MG CHEWABLE TAB one tab daily fluticasone (FLONASE) 50 mcg/Actuation NASAL SprA One puff per nostril in a.m. No current facility-administered medications for this visit. Allergies As of Date: 02/28/2022 Allergen Noted Reaction PENICILLINS 06/04/2006 Rash Fully Assessed 02/28/2022 REVIEW OF SYSTEMS Abdomen: no pain Bladder: no dysuria.. Expanded ROS: GENERAL: Negative for fever Allergies and current medication updated:Yes EXAM: BP 124/78 Wt 152 lb (68.9kg) LMP 07/20/2013 GENERAL: pleasant, female in no apparent distress HEENT: Normocephalic and atraumatic NECK: full range of motion DERMATOLOGY: Normal and without lesions PELVIC: Gellhorn pessary removed without difficulty. It was cleaned and coated with Trimo-Light. Speculum exam revealed no ulcerations. No active bleeding. No masses. Normal vaginal discharge. The pessary was then placed without difficulty. Patient tolerated well. NEURO: alert and oriented x3,exam grossly non-focal EXTREMITIES: normal ASSESSMENT AND PLAN: Encounter Diagnosis ICD-10-CM 1. Pessary maintenance Z46.89 2. Female genital prolapse, unspecified type N81.9 3. Cystocele, midline N81.11 4. RTO 3 mo for pessary maintenance I spent a total of 20 minutes on the date of the service which included preparing to see the patient, [id number] patient care, completing clinical documentation, obtaining and/or reviewing separately obtained history, performing a medically appropriate examination and counseling and educating the patient/family/caregiver Elvin Hendrix MD documented in this encounter [facility] 02-04-2022 Miscellaneous Notes February 04, 2022 PID: [id number] Brenda Enrique [address] [place] [address] Dear Ms. Enrique, We are pleased to inform you that the results of your recent breast imaging exam on 02/04/2022 are normal. Early detection of cancer is very important. We also understand recommendations regarding breast cancer screening are controversial. Please discuss with your primary care provider which strategy is best for you and whether a mammogram is right for you. Your imaging studies and report will be kept on file at [facility] as part of your permanent medical record and are available for your continuing care. Thank you for allowing us to help in meeting your health care needs. Sincerely, Dr. Moore Interpreting Radiologist [facility] (Normal over 40) documented in this encounter [facility] 02-04-2022 History of Presen t illness Narrative Radiology Service Progress Note PATIENT NAME: Brenda Enrique DATE OF SERVICE: February 04, 2022 TIME: 10:50 AM PATIENT IDENTITY VERIFICATION COMPLETED USING TWO (2) IDENTIFIERS: Name and Date of confirmed by patient verbally. FALL SCREENING: Has the patient had 2 falls in the last year or 1 fall with injury or currently using an Ambulatory Assistive Device (Walker, Cane, Wheelchair, Crutches, etc.)? No PATIENT GENDER DATA: Female. status: : No status: NO. PATIENT RELEVANT IMPLANT DATA REVIEWED: Not Applicable RADIOLOGY DEPARTMENT: Mammography PERIPHERAL IV DATA: Not applicable SIGNED BY: RT Lety(R) February 04, 2022 10:50 AM documented in this encounter [facility] Evaluation note Diagnosis Encounter for screening mammogram for malignant neoplasm of breast Other screening mammogram [facility] Pessary maintenance- Primary Fitting and adjustment of other device Female genital prolapse, unspecified type Cystocele, midline [facility] Diagnosis Female genital prolapse, unspecified type- Primary Vaginal inflammation from pessary, initial encounter ([facility]) Vagina bleeding Other specified noninflammatory disorder of vagina Cervical lesion Unspecified noninflammatory disorder of cervix Pessary maintenance Fitting and adjustment of other device [facility] Diagnosis Female genital prolapse, unspecified type- Primary Pessary maintenance Fitting and adjustment of other device [facility] Diagnosis Encounter for gynecological examination (general) (routine) without abnormal findings- Primary Encounter for screening mammogram for breast cancer Special screening for malignant neoplasms, colon Encounter for screening for osteoporosis Special screening for osteoporosis [facility] Diagnosis Uterovaginal prolapse- Primary Uterovaginal prolapse, unspecified Cystocele, midline Vaginal enterocele Vaginal enterocele, congenital or acquired Vaginal inflammation from pessary, subsequent encounter [facility] Diagnosis Female genital prolapse, unspecified type- Primary Vaginal inflammation from pessary, subsequent encounter Pessary maintenance Fitting and adjustment of other device [facility] Diagnosis Midline cystocele- Primary Cystocele, midline Uterovaginal prolapse Uterovaginal prolapse, unspecified Vaginal inflammation from pessary, subsequent encounter Pessary maintenance Fitting and adjustment of other device [facility] Diagnosis Vaginal inflammation from pessary, subsequent encounter- Primary Uterovaginal prolapse Uterovaginal prolapse, unspecified Midline cystocele Cystocele, midline [facility]* Diagnosis Complete uterovaginal prolapse- Primary Uterovaginal prolapse, complete Vaginal inflammation from pessary, subsequent encounter Midline cystocele Cystocele, midline Pessary maintenance Fitting and adjustment of other device [facility] Diagnosis Complete uterovaginal prolapse- Primary Uterovaginal prolapse, complete Pessary maintenance Fitting and adjustment of other device Encounter for screening mammogram for malignant neoplasm of breast Other screening mammogram [facility] Diagnosis Encounter for gynecological examination (general) (routine) without abnormal findings- Primary Encounter for screening mammogram for breast cancer Screening for osteoporosis Special screening for osteoporosis Screen for colon cancer Special screening for malignant neoplasms, colon Complete uterovaginal prolapse Uterovaginal prolapse, complete Pessary maintenance Fitting and adjustment of other device [facility] Encounter for screening mammogram for malignant neoplasm of breast Other screening mammogram documented in this encounter [facility] for referral (narrative)* Outpatient Procedure (Routine) - Pending Review Specialty Diagnoses / Procedures Referred By Juan Ramon godfrey Referred To Contact [facility] Diagnoses Special screening for malignant neoplasms, colon Procedures COLONOSCOPY SCREENING COLONOSCOPY FLX DX W/COLLJ SPEC WHEN PFRMD Elvin Ruiz MD [address] [place] [address] [facility] [address] [place] [id number] Referral ID Status Reason Start Date Expiration Date Visits Requested Visits Authorized [id number] Pending Review Auto-Generat ed Referral 12/26/2022 12/27/2023 1 1 * Diagnostic Procedure Only (Routine) - Pending Review Specialty Diagnoses / Procedures Referred By Juan Ramon godfrey Referred To Contact [facility] Diagnoses Encounter for screening mammogram for breast cancer Procedures SAHARA SCREENING W MECCA SCREENING DIGITAL BREAST TOMOSYNTHESIS BI SCREENING MAMMOGRAPHY BI 2-VIEW BREAST INC CAD Elvin Ruiz MD [address] [place] [address] [facility] [address] [place] [address] Referral ID Status Reason Start Date Expiration Date Visits Requested Visits Authorized [id number] Pending Review Auto-Generat ed Referral 12/26/2022 01/25/2024 1 1 [facility] for referral (narrative)* Diagnostic Procedure Only (Routine) - Authorized Specialty Diagnoses / Procedures Referred By Juan Ramon t Referred To Contact [facility] Diagnoses Encounter for screening mammogram for malignant neoplasm of breast Procedures SAHARA SCREENING W MECCA SCREENING DIGITAL BREAST TOMOSYNTHESIS BI SCREENING MAMMOGRAPHY BI 2-VIEW BREAST INC CAD Elvin Ruiz MD [address] [place] [address] [facility] [address] [place] [id number] Referral ID Status Reason Start Date Expiration Date Visits Requested Visits Authorized [id number] Authorized Auto-Generat ed Referral 02/09/2024 03/10/2025 [facility] Outpatient Procedure (Routine) - Authorized Specialty Diagnoses / Procedures Referred By Juan Ramon godfrey Referred To Contact [facility] Diagnoses Screen for colon cancer Procedures COLONOSCOPY SCREENING COLONOSCOPY FLX DX W/COLLJ SPEC WHEN PFRMD Elvin Ruiz MD [address] [place] [address] [facility] [address] [place] [id number] Referral ID Status Reason Start Date Expiration Date Visits Requested Visits Authorized [id number] Authorized Auto-Generat ed Referral 05/10/2024 05/10/2025 1 1 * Diagnostic Procedure Only (Routine) - Authorized Specialty Diagnoses / Procedures Referred By Juan Ramon godfrey Referred To Contact [facility] Diagnoses Screening for osteoporosis Procedures DXA-AXIAL SKELETON DXA BONE DENSITY STUDY 1/> SITES AXIAL SKEL Elvin Ruiz MD [address] [place] [address] [place] [address] Referral ID Status Reason Start Date Expiration Date Visits Requested Visits Authorized [id number] Authorized Auto-Generat ed Referral 05/10/2024 06/09/2025 1 1 * Diagnostic Procedure Only (Routine) - Authorized Specialty Diagnoses / Procedures Referred By Juan Ramon godfrey Referred To Contact [facility] Diagnoses Encounter for screening mammogram for breast cancer Procedures SAHARA SCREENING W MECCA SCREENING DIGITAL BREAST TOMOSYNTHESIS BI SCREENING MAMMOGRAPHY BI 2-VIEW BREAST INC CAD Elvin Ruiz MD [address] [place] [address] [facility] [address] [place] [address] Referral ID Status Reason Start Date Expiration Date Visits Requested Visits Authorized [id number] Authorized Auto-Generat ed Referral 05/10/2024 06/09/2025 1 1 [facility] for referral (narrative)* Diagnostic Procedure Only (Routine) - Closed Specialty Diagnoses / Procedures Referred By Juan Ramon godfrey Referred To Contact [facility] Diagnoses Encounter for screening mammogram for malignant neoplasm of breast Procedures SAHARA SCREENING W MECCA SCREENING DIGITAL BREAST TOMOSYNTHESIS BI SCREENING MAMMOGRAPHY BI 2-VIEW BREAST INC CAD Elvin Ruiz MD [address] [place] [address] [facility] [address] [place] [address] Referral ID Status Reason Start Date Expiration Date V isits Requested Visits Authorized [id number] Closed Auto-Generate d Referral 02/09/2024 03/10/2025 1 1 [facility] for visit Narrative* Diagnostic Procedure Only (Routine) - Closed Specialty Diagnoses / Procedures Referred By Juan Raomn godfrey Referred To Contact [facility] Diagnoses Encounter for screening mammogram for malignant neoplasm of breast Procedures SAHARA SCREENING W MECCA SCREENING DIGITAL BREAST TOMOSYNTHESIS BI SCREENING MAMMOGRAPHY BI 2-VIEW BREAST INC CAD Elvin Ruiz MD [address] [place] [address] [facility] [address] [place] [address] Referral ID Status Reason Start Date Expiration Date V isits Requested Visits Authorized [id number] Closed Auto-Generate d Referral 10/24/2021 11/23/2022 1 1 [facility] Procedure Only (Routine) - Closed Specialty Diagnoses / Procedures Referred By Juan Ramon t Referred To Contact [facility] Diagnoses Encounter for screening mammogram for malignant neoplasm of breast Procedures SAHARA SCREENING W MECCA SCREENING DIGITAL BREAST TOMOSYNTHESIS BI SCREENING MAMMOGRAPHY BI 2-VIEW BREAST INC CAD Elvin Ruiz MD [address] [place] [address] [facility] [address] [place] [address] Referral ID Status Reason Start Date Expiration Date V isits Requested Visits Authorized [id number] Closed Auto-Generate d Referral 02/09/2024 03/10/2025 1 1 [facility] Reason for Referral Specialty Diagnoses / Procedures Referred By Juan Ramon t Referred To Contact Diagnoses Uterovaginal prolapse Cystocele, midline Vaginal enterocele Procedures CONSULT TO [facility] OFFICE/[facility] 60-74 MINUTES Elvin Ruiz MD [address] [place] [address] Referral ID Status Reason Start Date Expiration Date Visits Requested Visits Authorized [id number] Pending Review PCP Requested Referral Auto-Generate d Referral 03/31/2023 03/30/2024 1 1 Specialty Diagnoses / Procedures Referred By Juan Ramon t Referred To Contact Diagnoses Midline cystocele Procedures CONSULT TO URO GYNECOLOGY OFFICE/OUTPATIENT [facility] 60-74 MINUTES Elvin Ruiz MD [address] [place] [address] Referral ID Status Reason Start Date Expiration Date Visits Requested Visits Authorized [id number] Pending Review PCP Requested Referral Auto-Generate d Referral 3 07/08/2024 1 1 Summary Purpose Family History No Family History Records Found Advance Directives No Advanced Directives Records Found Additional Source Comments Source Comments (unrecognize d section and content) In the event this informatio n is protected by the Federal Confidentiality of Alcohol and Drug Abuse Patient Records regulations: The Federal rules restrict any use of the information to criminally investigate or prosecute any alcohol or drug abuse patient.[facility] the event this information is protected by the Federal Confidentiality of Alcohol and Drug Abuse Patient Records regulations: The Federal rules restrict any use of the information to criminally investigate or prosecute any alcohol or drug abuse patient.[facility] the event this information is protected by the Federal Confidentiality of Alcohol and Drug Abuse Patient Records regulations: The Federal rules restrict any use of the information to criminally investigate or prosecute any alcohol or drug abuse patient.[facility] the event this information is protected by the Federal Confidentiality of Alcohol and Drug Abuse Patient Records regulations: The Federal rules restrict any use of the information to criminally investigate or prosecute any alcohol or drug abuse patient.[facility] the event this information is protected by the Federal Confidentiality of Alcohol and Drug Abuse Patient Records regulations: The Federal rules restrict any use of the information to criminally investigate or prosecute any alcohol or drug abuse patient.[facility] the event this information is protected by the Federal Confidentiality of Alcohol and Drug Abuse Patient Records regulations: The Federal rules restrict any use of the information to criminally investigate or prosecute any alcohol or drug abuse patient.[facility] the event this information is protected by the Federal Confidentiality of Alcohol and Drug Abuse Patient Records regulations: The Federal rules restrict any use of the information to criminally investigate or prosecute any alcohol or drug abuse patient.[facility] the event this information is protected by the Federal Confidentiality of Alcohol and Drug Abuse Patient Records regulations: The Federal rules restrict any use of the information to criminally investigate or prosecute any alcohol or drug abuse patient.[facility] the event this information is protected by the Federal Confidentiality of Alcohol and Drug Abuse Patient Records regulations: The Federal rules restrict any use of the information to criminally investigate or prosecute any alcohol or drug abuse patient.[facility] the event this information is protected by the Federal Confidentiality of Alcohol and Drug Abuse Patient Records regulations: The Federal rules restrict any use of the information to criminally investigate or prosecute any alcohol or drug abuse patient.[facility] the event this information is protected by the Federal Confidentiality of Alcohol and Drug Abuse Patient Records regulations: The Federal rules restrict any use of the information to criminally investigate or prosecute any alcohol or drug abuse patient.[facility] the event this information is protected by the Federal Confidentiality of Alcohol and Drug Abuse Patient Records regulations: The Federal rules restrict any use of the information to criminally investigate or prosecute any alcohol or drug abuse patient.[facility] the event this information is protected by the Federal Confidentiality of Alcohol and Drug Abuse Patient Records regulations: The Federal rules restrict any use of the information to criminally investigate or prosecute any alcohol or drug abuse patient.[facility] the event this information is protected by the Federal Confidentiality of Alcohol and Drug Abuse Patient Records regulations: The Federal rules restrict any use of the information to criminally investigate or prosecute any alcohol or drug abuse patient.[facility] the event this information is protected by the Federal Confidentiality of Alcohol and Drug Abuse Patient Records regulations: The Federal rules restrict any use of the information to criminally investigate or prosecute any alcohol or drug abuse patient.[facility] Care Teams (unrecognized sec tion and content) Manager Work Relationship Specialty Start Date End Date Leanna Fisher [address] [place] [address] PCP - General 11/21/03 Manager Work Relationship Specialty Start Date End Date Leanna Fisher [address] [place] [address] PCP - General 11/21/03 Manager Work Relationship Specialty Start Date End Date Leanna Fisher Philip [address] [place] [address] PCP - General 11/21/03 Manager Work Relationship Specialty Start Date End Date Leanna Fisher Philip [address] [place] [address] PCP - General 11/21/03 Manager Work Relationship Specialty Start Date End Date Leanna Fisher Philip [address] [place] [address] PCP - General 11/21/03 Manager Work Relationship Specialty Start Date End Date Gennazaira Leanna Philip [address] [place] [address] PCP - General 11/21/03 Manager Work Relationship Specialty Start Date End Date Leanna Fisher [address] [place] [address] PCP - General 11/21/03 Manager Work Relationship Specialty Start Date End Date Leanna Fisher [address] [place] [address] PCP - General 11/21/03 Manager Work Relationship Specialty Start Date End Date Leanna Fisher [address] [place] [address] PCP - General 11/21/03 Manager Work Relationship Specialty Start Date End Date Leanna Fisher [address] [place], [place] [address] PCP - General 11/21/03 Manager Work Relationship Specialty Start Date End Date Leanna Fisher [address] [place], [place] [address] PCP - General 11/21/03 Manager Work Relationship Specialty Start Date End Date Leanna Fisher [address] [place], [place] [address] PCP - General 11/21/03 Manager Work Relationship Specialty Start Date End Date Leanna Fisher [address] [place], [place] [id number] PCP - General 11/21/03 Reason for Visit (unrecogniz ed section and content) Reason Comments Pessary Reason Comments Pessary Reason Comments Yearly Exam Reason Comments Pessary Reason Comments Follow Up Pessary Reason Comments Urinary Problem Reason Comments Yearly Exam INFORMATION SOURCE (unrecogn ized section and content) DATE CREATED AUTHOR 05/15/2024 [facility] FOR RECORDS PERTAINING TO PATIENTS WHO ARE OR HAVE BEEN ENROLLED IN A CHEMICAL DEPENDENCY/SUBSTANCEABUSE PROGRAM, SOME INFORMATION MAY BE OMITTED. This clinical summary was aggregated from multiple sources. Caution should be exercised in using it in the provision of clinical care. This summary normalizes information from multiple sources, and as a consequence, information in this document may materially change the coding, format and clinical context of patient data. In addition, data may be omitted in some cases. CLINICAL DECISIONS SHOULD BE BASED ON THE PRIMARY CLINICAL RECORDS. [facility]. provides no warranty or guarantee of the accuracy or completeness of information in this document.
[2024-06-21 15:59] LABS: AST(SGOT) 19 U/L (15-37); Alanine Aminotransfer ALT/SGPT 25 U/L (13-56); Anion Gap 3 (5-15); BUN 21 mg/dL (7-18); BUN/Creat Ratio 37.6 RATIO (10-20); Calcium,Total 9.1 mg/dL (8.5-10.1); Chloride 104 mmol/L (98-107); Cholesterol 173 mg/dL (200); Creatinine, Serum 0.56 mg/dL (0.55-1.02); EST Glomerular Filtration Rate 115 mL/min (>60); Est Glom Filt Rate - Afr Amer 140 mL/min (>60); Glucose 85 mg/dL (74-106); High Density Lipoprotein 32 mg/dL; Potassium 3.7 mmol/L (3.5-5.1); Sodium Level 135 mmol/L (136-145); Triglycerides 324 mg/dL; Very Low Density Lipoprotein 65 mg/dL (5-40)
[2024-06-21 16:03] LABS: Protein, Urine (Random) 18.7 mg/dL (<11.9); Protein:Creat Ratio 432 mg/g CRE (0-200)
== END | disposition home or self-care (01) ==
LOC: MFPLAB 11:21
PROVIDERS: PCP Family Medicine; Referring Provider Family Medicine; Visit Provider Family Medicine
DX: E78.2 Mixed hyperlipidemia (principal); I10 Essential (primary) hypertension
CPT/HCPCS: 36415; 80048; 80061; 82570; 84156; 84450; 84460

== ENCOUNTER → 2024-09-28 | Outpatient (CLI) | payer MEDICARE, SELFPAY ==
[2024-09-28 12:18] LABS: Color, Urine Straw (Yellow); Glucose, Dipstick Normal (Normal); Ketone-Dipstick Negative (Negative); Leukocyte Esterase-Dipstick 500 /ul (Negative); Nitrite-Dipstick Negative (Negative); Occult Blood-Urine 10 /ul (Negative); Protein-Dipstick Negative (Negative); Urine Bilirubin Dipstick Negative (Negative); Urine Clarity Clear (Clear); Urine Urobilinogen Normal (Normal)
[2024-09-28 12:20] LABS: Protein, Urine (Random) < 6.0 mg/dL (<11.9); Protein:Creat Ratio 224 mg/g CRE (0-200)
[2024-09-28 12:21] LABS: Hematocrit 41.1 % (37-47); Hemoglobin 13.6 g/dL (12.0-15.0); Mean Corp Hgb Conc 33.1 g/dL (32-36); Mean Corpuscular Hgb 28.8 pg (27.0-32.0); Mean Corpuscular Volume 87.1 fL (81-99); Mean Platelet Vol. 9.6 fl (6.2-12.0); Platelet Count 211 K/mm3 (150-450); RBC Distribution Width CV 13.2 % (11.6-14.6); RBC Distribution Width SD 41.5 fl (35.1-43.9); Red Blood Count 4.72 M/mm3 (4.2-5.4); White Blood Count 6.8 K/mm3 (4.4-11.0)
[2024-09-28 12:53] LABS: Anion Gap 8 (5-15); BUN 20 mg/dL (7-18); BUN/Creat Ratio 30.9 RATIO (10-20); Calcium,Total 9.1 mg/dL (8.5-10.1); Chloride 102 mmol/L (98-107); Creatinine, Serum 0.65 mg/dL (0.55-1.02); EST Glomerular Filtration Rate 97 mL/min (>60); Est Glom Filt Rate - Afr Amer 117 mL/min (>60); Glucose 84 mg/dL (74-106); Potassium 3.4 mmol/L (3.5-5.1); Sodium Level 138 mmol/L (136-145)
== END | disposition home or self-care (01) ==
PROVIDERS: PCP Family Medicine; Referring Provider Internal Medicine Nephrology; Visit Provider Internal Medicine Nephrology
DX: I10 Essential (primary) hypertension (principal); R80.9 Proteinuria, unspecified
CPT/HCPCS: 36415; 80048; 81002; 82570; 84156; 85027